=== PATIENT | male | born 1945 | race Caucasian/White ===

== ENCOUNTER 2017-05-27 17:28 | Observation (INO) | payer OTHER ==
[~2017-05-27] VITALS: Ht 172.7 cm; Wt 56.7 kg
[~2017-05-27 17:28] MED LIST: AZIT250T8 PO; CEFT1INJ33 IVP; GABA300C10; HYDR-4683 PO; OMEP20TA51; ROPI1TAB2; TRAZ100T2
[2017-05-27] MEDS ORDERED: SODIUM CHLORIDE 0.9% 1,000 ML IVB ONE (18:00)
[2017-05-27 19:20] LABS: Basophils # (auto) 0 uL; Hemoglobin 14.9 g/dL (13.5-17.5); Lymphocytes # (auto) 2.3 uL; Monocytes # (auto) 0.5 uL; Neutrophils # (auto) 3.1 uL
[2017-05-27 19:22] LABS: Basophils % (auto) 0.5 % (0.0-2.0); Eosinophils # (auto) 0.1 uL; Eosinophils % (auto) 1.1 % (0.0-7.0); Hematocrit 43.9 % (41.0-53.0); Lymphocytes % (auto) 38.5 % (10.0-50.0); Mean Corpuscular Hemoglobin 34.3 pg (28.0-32.0); Mean Corpuscular Hgb Conc. 33.9 g/dL (32.0-36.0); Mean Corpuscular Volume 101.1 fL (80.0-100.0); Monocytes % (auto) 7.6 % (0.0-12.0); Neutrophils % (auto) 52.3 % (37.0-80.0); Nucleated Red Blood Cells % 0.5 %; Platelet Count (auto) 164 10^3/uL (140-450); Red Blood Cells 4.34 10^6/uL (4.5-5.90); Red Cell Distribution Width 14.5 % (11.8-14.3)
[2017-05-27 19:32] LABS: INR 1.08 (0.9-1.15); Partial Thromboplastin Time 33.8 sec (22.64-33.71); Prothrombin Time 11.8 sec (9.37-12.3)
[2017-05-27 19:38] LABS: Acetaminophen < 2.0 ug/mL (10-30); Salicylate < 1.7 mg/dL (2.8-20.0)
[2017-05-27 19:40] LABS: Albumin 2.8 g/dL (3.4-5.0); BUN/Creatinine Ratio 7.4; Bilirubin, Total 0.6 mg/dL (0.2-1.0); Calcium 7.7 mg/dL (8.5-10.1); Magnesium 2.3 mg/dL (1.6-2.6); Potassium 3.2 mmol/L (3.5-5.1); Total Protein 6.7 g/dL (6.4-8.2)
[2017-05-27] MEDS ORDERED: SODIUM CHLORIDE 0.9% 1,000 ML IV ONE ×2 (20:15→22:30)
[2017-05-27] MEDS ORDERED: POTASSIUM CHL 20 Meq TABLET PO ONE (21:30)
[2017-05-27] MEDS ORDERED: FOLIC ACID 1 MG TAB ONE (22:20)
[2017-05-27] MEDS ORDERED: THIAMINE HCL 100 MG/ML 2ML VIAL ONE (22:20)
[2017-05-27] MEDS ORDERED: MVI in SODIUM CHLORIDE 0.9% 1,010 ML ONE (22:20)
[2017-05-27] MEDS ORDERED: MAGNESIUM SULFATE 1GM/100ML 0 ML IV ONE (22:24)
[2017-05-27 22:25] LABS: Urine WBC None Seen /hpf (0 - 3)
[2017-05-27] MEDS ORDERED: THIAMINE INJ 100 MG, MULTIPLE VITAMIN 10 ML, FOLIC ACID 1 MG, MAGNESIUM SULF SDV 50% 8 ... IV SCH ×5 (22:30)
[2017-05-27] MEDS ORDERED: THIAMINE HCL 100 MG/ML 2ML VIAL IV ONE (22:30)
[2017-05-27] MEDS ORDERED: FOLIC ACID 1 MG TAB PO ONE (22:30)
[2017-05-27 22:46] LABS: Urine Bacteria FEW /hpf (None Seen); Urine Blood Negative /uL (Negative); Urine Specific Gravity 1.004 (1.001-1.035)
[2017-05-27 22:51] LABS: Amphetamine Screen, Urine NEGATIVE (NEGATIVE); Barbiturate Scree,Urine NEGATIVE (NEGATIVE); Benzodiazephine Screen, Urine NEGATIVE (NEGATIVE); Cannabinoid Screen, Urine NEGATIVE (NEGATIVE); Cocaine Screen, Urine NEGATIVE (NEGATIVE); Opiate Scree,Urine NEGATIVE (NEGATIVE); Phencyclidine Screen, Urine NEGATIVE (NEGATIVE)
[2017-05-28 09:37] VITALS: BP 115/70
[2017-05-28] MEDS ORDERED: THIAMINE INJ 100 MG, MULTIPLE VITAMIN 10 ML, FOLIC ACID 1 MG, MAGNESIUM SULF SDV 50% 8 ... IV SCH ×5 (12:00)
== END 2017-05-28 14:31 | disposition home or self-care (01) | DRG 918 ==
LOC: EDBD 17:28 → ER 17:31 → OVERFLOW 18:01 → ER 05-28 14:31
PROVIDERS: ADMIT Family Medicine; ATTEND Family Medicine
DX: T43.212A Poisoning by selective serotonin and norepinephrine reuptake inhibitors, intentional self-harm, initial encounter (principal); G62.9 Polyneuropathy, unspecified; F10.20 Alcohol dependence, uncomplicated; F17.210 Nicotine dependence, cigarettes, uncomplicated; G47.00 Insomnia, unspecified; F32.9 Major depressive disorder, single episode, unspecified; F41.9 Anxiety disorder, unspecified; Z91.5 Personal history of self-harm; Y92.89 Other specified places as the place of occurrence of the external cause
CPT/HCPCS: 36415; 71045; 80053; 80307; 80320; 80329; 81001; 82962; 83735; 85025; 85610; 85730; 93005; 96361; 96374; 99285; G0378; J3411; J3475; J7030

== ENCOUNTER 2017-07-16 20:38 | Inpatient (IN) | payer OTHER ==
[~2017-07-16] VITALS: Ht 172.7 cm; Wt 57.4 kg
[2017-07-16 22:21] LABS: Basophils # (auto) 0 uL; Basophils % (auto) 0.6 % (0.0-2.0); Eosinophils # (auto) 0.1 uL; Hemoglobin 14.6 g/dL (13.5-17.5); Lymphocytes # (auto) 2.4 uL; Neutrophils # (auto) 1.8 uL; White Blood Cell 4.9 10^3/uL (4.4-10.8)
[2017-07-16 22:24] LABS: Eosinophils % (auto) 1.9 % (0.0-7.0); Hematocrit 42.9 % (41.0-53.0); Mean Corpuscular Hemoglobin 34.8 pg (28.0-32.0); Mean Corpuscular Hgb Conc. 34.1 g/dL (32.0-36.0); Mean Corpuscular Volume 101.9 fL (80.0-100.0); Monocytes # (auto) 0.6 uL; Monocytes % (auto) 12.1 % (0.0-12.0); Neutrophils % (auto) 36.4 % (37.0-80.0); Nucleated Red Blood Cells % 0.3 %; Red Blood Cells 4.21 10^6/uL (4.5-5.90); Red Cell Distribution Width 14.3 % (11.8-14.3)
[2017-07-16 22:35] LABS: Alanine Aminotransferase 93 U/L (16-61); Albumin 3.4 g/dL (3.4-5.0); Amylase 75 U/L (25-115); Anion Gap 5 (5-15); Aspartate Aminotransferase 257 U/L (15-37); Blood Urea Nitrogen 9 mg/dL (7-18); Calcium 8.6 mg/dL (8.5-10.1); Carbon Dioxide 29 mmol/L (21-32); Chloride 109 mmol/L (98-107); GFR African American 171 mL/min; GFR Non-African American 142 mL/min; Glucose 90 mg/dL (74-106); Lipase 230 U/L (73-393); Potassium 3.3 mmol/L (3.5-5.1); Sodium 143 mmol/L (136-145)
[2017-07-16 22:40] LABS: Alkaline Phosphatase 99 U/L (45-117); Bilirubin, Total 0.6 mg/dL (0.2-1.0); Platelet Count (auto) 67 10^3/uL (140-450)
[2017-07-16 23:34] LABS: INR 0.97 (0.9-1.15); Partial Thromboplastin Time 29.3 sec (22.64-33.71); Prothrombin Time 10.6 sec (9.37-12.3)
[2017-07-17 06:34] LABS: Urine Bacteria NONE SEEN /hpf (None Seen); Urine Blood Negative /uL (Negative); Urine Specific Gravity 1.007 (1.001-1.035); Urine WBC <1 /hpf (0 - 3)
[2017-07-17] MEDS ORDERED: GABAPENTIN 300 MG CAP PO ONE (09:30)
[2017-07-17] MEDS ORDERED: ALUM & MAG HYDROX-SIMETH LIQ(MAALOX) 30 ML PO PRN (09:45)
[2017-07-17] MEDS ORDERED: HYDROcodone-ACET 5/325MG TAB PO PRN (09:45)
[2017-07-17] MEDS ORDERED: MORPHINE SULFATE 4 MG/ML SYR/VIAL IV PRN ×2 (09:45)
[2017-07-17] MEDS ORDERED: PHYTONADIONE (VIT K)10 MG/ML 1ML VIAL SUBCUT ONE (09:45)
[2017-07-17] MEDS ORDERED: TEMAZEPAM 15 MG CAP PO PRN (09:45)
[2017-07-17] MEDS ORDERED: ONDANSETRON HCL 4 MG/2 ML VIAL IV PRN (09:45)
[2017-07-17] MEDS ORDERED: NITROGLYCERIN 0.4 MG SL TAB SL PRN (09:45)
[2017-07-17] MEDS ORDERED: ACETAMINOPHEN 325 MG TAB PO PRN (09:45)
[2017-07-17] MEDS: chlordiazePOXIDE HCL 25 MG CAP PO PRN ×3 (09:50→16:50)
[2017-07-17] MEDS: SODIUM CHLORIDE 0.9% 1,000 ML IV SCH (09:55)
[2017-07-17] MEDS ORDERED: FAMOTIDINE 20 MG TAB PO SCH (10:00)
[2017-07-17] MEDS ORDERED: PANTOPRAZOLE 40 MG/10 ML VIAL IV SCH (10:00)
[2017-07-17] MEDS: MULTIPLE VITAMIN TAB PO SCH (10:09)
[2017-07-17] MEDS: METOPROLOL TARTRATE 25 MG TAB PO SCH ×2 (10:10→21:59)
[2017-07-17 12:05] VITALS: BP 129/91
[2017-07-17] MEDS ORDERED: LORazepam 2MG/ML-1ML VIAL IV PRN (13:00)
[2017-07-17] MEDS ORDERED: PROMETHAZINE HCL 25 MG/ML 1ML IV PRN (13:00)
[2017-07-17 13:09] VITALS: BP 129/91
[2017-07-17] MEDS ORDERED: GOLYTELY 4L KIT PO ONE (15:00)
[2017-07-17] MEDS: GABAPENTIN 300 MG CAP PO SCH ×2 (15:01→22:00)
[2017-07-17 16:27] VITALS: BP 143/85
[2017-07-17 22:00] VITALS: BP 149/85
[2017-07-17] MEDS: traZODone HCL 50 MG TAB PO SCH (22:00)
[2017-07-17] MEDS: PANTOPRAZOLE 40 MG/10 ML VIAL IV SCH (22:01)
[2017-07-18] MEDS: SODIUM CHLORIDE 0.9% 1,000 ML IV SCH (03:08)
[2017-07-18 05:48] LABS: Basophils # (auto) 0 uL; Eosinophils # (auto) 0 uL; Lymphocytes # (auto) 1.8 uL; White Blood Cell 4.8 10^3/uL (4.4-10.8)
[2017-07-18 05:52] LABS: Basophils % (auto) 0.5 % (0.0-2.0); Eosinophils % (auto) 0.6 % (0.0-7.0); Hemoglobin 13.2 g/dL (13.5-17.5); Lymphocytes % (auto) 36.6 % (10.0-50.0); Mean Corpuscular Hemoglobin 35.1 pg (28.0-32.0); Mean Corpuscular Hgb Conc. 34.7 g/dL (32.0-36.0); Mean Corpuscular Volume 101.1 fL (80.0-100.0); Monocytes # (auto) 0.6 uL; Monocytes % (auto) 12.6 % (0.0-12.0); Neutrophils # (auto) 2.4 uL; Neutrophils % (auto) 49.7 % (37.0-80.0); Nucleated Red Blood Cells % 0.1 %; Platelet Count (auto) 60 10^3/uL (140-450); Red Blood Cells 3.76 10^6/uL (4.5-5.90); Red Cell Distribution Width 13.8 % (11.8-14.3)
[2017-07-18] MEDS: GABAPENTIN 300 MG CAP PO SCH ×3 (05:52→21:55)
[2017-07-18 05:53] VITALS: BP 115/66
[2017-07-18] MEDS ORDERED: GOLYTELY 4L KIT PO ONE (06:00)
[2017-07-18 06:11] LABS: Albumin 3.1 g/dL (3.4-5.0); BUN/Creatinine Ratio 9.4; Bilirubin, Total 1.4 mg/dL (0.2-1.0); Calcium 7.4 mg/dL (8.5-10.1); Total Protein 6.1 g/dL (6.4-8.2)
[2017-07-18 06:17] LABS: Potassium 2.8 mmol/L (3.5-5.1)
[2017-07-18 08:48] VITALS: BP 127/66
[2017-07-18] MEDS: METOPROLOL TARTRATE 25 MG TAB PO SCH ×2 (09:00→21:55)
[2017-07-18] MEDS: PANTOPRAZOLE 40 MG/10 ML VIAL IV SCH (09:00)
[2017-07-18] MEDS: chlordiazePOXIDE HCL 25 MG CAP PO PRN (09:00)
[2017-07-18] MEDS: MULTIPLE VITAMIN TAB PO SCH (10:00)
[2017-07-18] MEDS ORDERED: POTASSIUM CHLORIDE 40 MEQ, LIDOCAINE 1% (LOCAL ANESTH.) 4 ML in SODIUM CHL 0.9% 250 ML IV ONE (11:00)
[2017-07-18] MEDS ORDERED: LIDOCAINE VISCOUS 2% 15ML UD ONE (11:11)
[2017-07-18] MEDS ORDERED: diphenhdrAMINE HCL 50 MG/1 ML VL ONE (11:12)
[2017-07-18] MEDS: SOD CHL 0.9%/ KCL 20MEQ 1,000 ML IV SCH (12:11)
[2017-07-18 13:00] VITALS: BP 106/68
[2017-07-18] MEDS: fentaNYL CITRATE 100 MCG/2 ML VL ONE ×3 (14:43→14:52)
[2017-07-18] MEDS: MIDAZOLAM HCL 5 MG/ML-1ML VIAL ONE ×3 (14:43→14:52)
[2017-07-18] MEDS ORDERED: fentaNYL CITRATE 100 MCG/2 ML VL ONE (14:56)
[2017-07-18] MEDS ORDERED: MIDAZOLAM HCL 5 MG/ML-1ML VIAL ONE (14:56)
[2017-07-18 16:28] VITALS: BP 128/68
[2017-07-18] MEDS: POTASSIUM CHL 20 Meq TABLET PO SCH ×4 (16:52→21:54)
[2017-07-18] MEDS ORDERED: PANT40T PO (17:04)
[2017-07-18 17:38] VITALS: BP 128/68
[2017-07-18 18:45] LABS: Magnesium 1.5 mg/dL (1.6-2.6)
[2017-07-18 18:49] LABS: Potassium 2.8 mmol/L (3.5-5.1)
[2017-07-18] MEDS ORDERED: POTASSIUM CHLORIDE 20 MEQ, LIDOCAINE 1% (LOCAL ANESTH.) 2 ML in SODIUM CHL 0.9% 100 ML IV ONE (19:30)
[2017-07-18] MEDS: MAGNESIUM SULFATE 1GM/100ML 100 ML IV SCH ×2 (21:53→23:08)
[2017-07-18] MEDS: traZODone HCL 50 MG TAB PO SCH (21:54)
[2017-07-18] MEDS: PANTOPRAZOLE 40 MG TAB PO SCH (21:55)
[2017-07-18 22:00] VITALS: BP 116/67
[2017-07-19] MEDS ORDERED: MAGNESIUM SULFATE 1GM/100ML 100 ML IV ONE (00:17)
[2017-07-19] MEDS: MAGNESIUM SULFATE 1GM/100ML 100 ML IV SCH (00:25)
[2017-07-19] MEDS: SOD CHL 0.9%/ KCL 20MEQ 1,000 ML IV SCH (03:50)
[2017-07-19 05:00] VITALS: BP 134/74
[2017-07-19] MEDS: GABAPENTIN 300 MG CAP PO SCH (05:23)
[2017-07-19 06:53] LABS: Potassium 4.5 mmol/L (3.5-5.1)
[2017-07-19 06:56] LABS: Magnesium 2.4 mg/dL (1.6-2.6)
[2017-07-19 09:00] VITALS: BP 105/66
[2017-07-19] MEDS: MULTIPLE VITAMIN TAB PO SCH (10:00)
[2017-07-19] MEDS: METOPROLOL TARTRATE 25 MG TAB PO SCH (10:00)
[2017-07-19] MEDS: PANTOPRAZOLE 40 MG TAB PO SCH (10:00)
[2017-07-19 12:00] VITALS: BP 121/69
== END 2017-07-19 11:45 | disposition home or self-care (01) | DRG 394 ==
LOC: ER 20:38 → TELE 20:39 → TELE-CENTR 07-17 11:12
PROVIDERS: ADMIT Internal Medicine; ATTEND Hospitalist
PROC: 0DJ08ZZ Inspection of Upper Intestinal Tract, Via Natural or Artificial Opening Endoscopic (ICD-10-PCS; principal; 2017-07-18 14:40)
PROC: 0DBL8ZX Excision of Transverse Colon, Via Natural or Artificial Opening Endoscopic, Diagnostic (ICD-10-PCS; 2017-07-18 14:40)
DX: K64.8 Other hemorrhoids (principal); F10.231 Alcohol dependence with withdrawal delirium; D69.6 Thrombocytopenia, unspecified; K62.5 Hemorrhage of anus and rectum; K76.0 Fatty (change of) liver, not elsewhere classified; D12.2 Benign neoplasm of ascending colon; E87.6 Hypokalemia; G89.4 Chronic pain syndrome; K20.9 Esophagitis, unspecified; K29.70 Gastritis, unspecified, without bleeding; K29.80 Duodenitis without bleeding; K52.9 Noninfective gastroenteritis and colitis, unspecified; F32.9 Major depressive disorder, single episode, unspecified; F41.9 Anxiety disorder, unspecified
CPT/HCPCS: 36415; 43235; 45380; 71045; 74176; 80053; 81001; 82150; 83690; 83735; 84132; 84484; 85025; 85610; 85730; 86677; 86850; 86900; 86901; 93005; 93306; 96361; 96374; C9113; J2001; J2250; J2405; J3430

== ENCOUNTER 2018-08-09 20:16 | Emergency (ER) | payer OTHER ==
[~2018-08-09] VITALS: Ht 172.7 cm; Wt 53.1 kg
[~2018-08-09 20:16] MED LIST changes: -AZIT250T8 PO; -CEFT1INJ33 IVP; -OMEP20TA51; +PANT40T PO
[2018-08-10] MEDS ORDERED: KETOROLAC TROMETH 30 MG/ML 1ML VIAL IV ONE (02:45)
[2018-08-10] MEDS ORDERED: fentaNYL CITRATE 100 MCG/2 ML VL IV ONE (02:45)
[2018-08-10 03:07] LABS: White Blood Cell 7.9 10^3/uL (4.4-10.8)
[2018-08-10 03:15] LABS: Chloride 102 mmol/L (98-107); Potassium 3.8 mmol/L (3.5-5.1); Sodium 137 mmol/L (136-145)
[2018-08-10 03:23] LABS: Alanine Aminotransferase 13 U/L (16-61); Albumin 3.6 g/dL (3.4-5.0); Alkaline Phosphatase 93 U/L (45-117); Anion Gap 7 (5-15); Aspartate Aminotransferase 15 U/L (15-37); BUN/Creatinine Ratio 12.7; Bilirubin, Total 0.6 mg/dL (0.2-1.0); Blood Alcohol < 3.0 mg/dL (0-5); Blood Urea Nitrogen 9 mg/dL (7-18); Calcium 9.3 mg/dL (8.5-10.1); Carbon Dioxide 28 mmol/L (21-32); GFR African American 141 mL/min; GFR Non-African American 116 mL/min; Glucose 91 mg/dL (74-106); Magnesium 2.2 mg/dL (1.6-2.6); Total Protein 7.7 g/dL (6.4-8.2)
[2018-08-10 03:27] LABS: Basophils # (auto) 0 uL; Basophils % (auto) 0.4 % (0.0-2.0); Eosinophils # (auto) 0.1 uL; Eosinophils % (auto) 1.6 % (0.0-7.0); Hematocrit 39.8 % (41.0-53.0); Hemoglobin 13.5 g/dL (13.5-17.5); Lymphocytes # (auto) 2.2 uL; Lymphocytes % (auto) 27.7 % (10.0-50.0); Mean Corpuscular Hemoglobin 30.7 pg (28.0-32.0); Mean Corpuscular Hgb Conc. 33.8 g/dL (32.0-36.0); Mean Corpuscular Volume 90.8 fL (80.0-100.0); Monocytes # (auto) 0.7 uL; Monocytes % (auto) 9.4 % (0.0-12.0); Neutrophils # (auto) 4.8 uL; Neutrophils % (auto) 60.9 % (37.0-80.0); Nucleated Red Blood Cells % 0.1 %; Platelet Count (auto) 247 10^3/uL (140-450); Red Blood Cells 4.38 10^6/uL (4.5-5.90); Red Cell Distribution Width 13.3 % (11.8-14.3)
[2018-08-10 03:35] LABS: INR 1.03 (0.9-1.15); Partial Thromboplastin Time 37.9 sec (23.78-33.04)
[2018-08-10 04:32] VITALS: BP 116/75
== END 2018-08-10 04:46 | disposition short-term general hospital (02) ==
LOC: ER 20:21
DX: S32.009A Unspecified fracture of unspecified lumbar vertebra, initial encounter for closed fracture (principal); R79.1 Abnormal coagulation profile; M19.90 Unspecified osteoarthritis, unspecified site; X50.9XXA Other and unspecified overexertion or strenuous movements or postures, initial encounter; Y93.89 Activity, other specified; Y92.89 Other specified places as the place of occurrence of the external cause; Y99.8 Other external cause status
CPT/HCPCS: 36415; 71045; 72131; 80053; 80320; 83735; 84484; 85025; 85379; 85610; 85730; 96374; 96375; 99285; J1885; J3010

== ENCOUNTER 2019-03-30 19:08 | Emergency (ER) | payer OTHER ==
[~2019-03-30] VITALS: Ht 170.2 cm; Wt 53.5 kg
[~2019-03-30 19:08] MED LIST changes: -HYDR-4683 PO; +HYDR-4833 PO
[2019-03-30] MEDS ORDERED: HYDROcodone-ACET 5/325MG TAB PO ONE (20:00)
[2019-03-30] MEDS ORDERED: NEOMYCIN-BACITRACIN-POLYM UNITDOSE PKG TOP OINT TOP ONE (20:45)
[2019-03-30] MEDS ORDERED: NEOMYCIN-BACITRACIN-POLYM UNITDOSE PKG TOP OINT TOP PRN (21:00)
[2019-03-30 22:06] LABS: Basophils # (auto) 0 uL; Basophils % (auto) 0.2 % (0.0-2.0); Eosinophils # (auto) 0.1 uL; Eosinophils % (auto) 0.5 % (0.0-7.0); Hematocrit 46.2 % (41.0-53.0); Hemoglobin 15.7 g/dL (13.5-17.5); Lymphocytes # (auto) 1.8 uL; Lymphocytes % (auto) 16.7 % (10.0-50.0); Mean Corpuscular Hemoglobin 32.4 pg (28.0-32.0); Mean Corpuscular Volume 95.1 fL (80.0-100.0); Monocytes # (auto) 0.8 uL; Monocytes % (auto) 7.3 % (0.0-12.0); Neutrophils # (auto) 8.2 uL; Neutrophils % (auto) 75.3 % (37.0-80.0); Nucleated Red Blood Cells % 0.1 %; Platelet Count (auto) 182 10^3/uL (140-450); Red Blood Cells 4.86 10^6/uL (4.5-5.90); Red Cell Distribution Width 15.2 % (11.8-14.3); White Blood Cell 10.9 10^3/uL (4.4-10.8)
[2019-03-30 22:16] LABS: Alanine Aminotransferase 23 U/L (16-61); Albumin 3.7 g/dL (3.4-5.0); Anion Gap 9 (5-15); Aspartate Aminotransferase 34 U/L (15-37); BUN/Creatinine Ratio 11.9; Blood Urea Nitrogen 8 mg/dL (7-18); Calcium 8.8 mg/dL (8.5-10.1); Carbon Dioxide 22 mmol/L (21-32); Chloride 112 mmol/L (98-107); GFR African American 150 mL/min; GFR Non-African American 124 mL/min; Glucose 94 mg/dL (74-106); Potassium 3.8 mmol/L (3.5-5.1); Sodium 143 mmol/L (136-145)
[2019-03-30 22:18] LABS: INR 1.04 (0.9-1.15); Partial Thromboplastin Time 30.6 sec (23.64-32.05)
[2019-03-30 22:21] LABS: Alkaline Phosphatase 105 U/L (45-117); Bilirubin, Total 0.5 mg/dL (0.2-1.0)
[2019-03-30 22:31] VITALS: BP 127/85
== END 2019-03-30 22:20 | disposition home or self-care (01) ==
LOC: EDBD 19:08 → ER 19:09
DX: S16.1XXA Strain of muscle, fascia and tendon at neck level, initial encounter (principal); S20.212A Contusion of left front wall of thorax, initial encounter; M19.90 Unspecified osteoarthritis, unspecified site; V43.52XA Car driver injured in collision with other type car in traffic accident, initial encounter; Y93.I9 Activity, other involving external motion; Y92.410 Unspecified street and highway as the place of occurrence of the external cause; Y99.8 Other external cause status
CPT/HCPCS: 36415; 70450; 71045; 72125; 80053; 84484; 85025; 85610; 85730; 93005

== ENCOUNTER 2019-09-01 08:40 | Inpatient (IN) | payer OTHER ==
[~2019-09-01] VITALS: Ht 167.6 cm; Wt 53.3 kg
[~2019-09-01 08:40] MED LIST changes: -TRAZ100T2; +TRAZ100T3
[2019-09-01 09:35] LABS: Basophils # (auto) 0 10 ^3/uL (0-0.2); Basophils % (auto) 0.4 % (0.0-2.0); Eosinophils # (auto) 0.1 10 ^3/uL (0-0.8); Eosinophils % (auto) 1.5 % (0.0-7.0); Hematocrit 50.8 % (41.0-53.0); Hemoglobin 16.8 g/dL (13.5-17.5); Lymphocytes % (auto) 44.1 % (10.0-50.0); Mean Corpuscular Hemoglobin 32.3 pg (28.0-32.0); Mean Corpuscular Hgb Conc. 33.1 g/dL (32.0-36.0); Mean Corpuscular Volume 97.7 fL (80.0-100.0); Monocytes # (auto) 0.6 10 ^3/uL (0-1.3); Monocytes % (auto) 9.6 % (0.0-12.0); Neutrophils % (auto) 44.4 % (37.0-80.0); Nucleated Red Blood Cells % 0.2 %; Platelet Count (auto) 206 10^3/uL (140-450); Red Cell Distribution Width 14.8 % (11.8-14.3); White Blood Cell 6.8 10^3/uL (4.4-10.8)
[2019-09-01 09:51] LABS: Albumin 3.5 g/dL (3.4-5.0); Calcium 8.7 mg/dL (8.5-10.1); Potassium 3.4 mmol/L (3.5-5.1)
[2019-09-01 09:56] LABS: Bilirubin, Total 0.5 mg/dL (0.2-1.0); Total Protein 7.8 g/dL (6.4-8.2)
[2019-09-01 10:16] LABS: INR 1.04 (0.9-1.15); Partial Thromboplastin Time 35.3 sec (23.64-32.05)
[2019-09-01] MEDS ORDERED: IOHEXOL 350 MG/ML 100ML IJ ONE (11:09)
[2019-09-01] MEDS ORDERED: POTASSIUM EFFERVESENT TAB 25 MEQ PO ONE (12:00)
[2019-09-01] MEDS ORDERED: cefTRIAXone 1GM/50ML D5W 50 ML IV ONE (12:15)
[2019-09-01] MEDS ORDERED: CLINDAMYCIN 600MG IV 50 ML IV ONE (12:15)
[2019-09-01] MEDS ORDERED: NITROGLYCERIN 0.4 MG SL TAB SL PRN (12:45)
[2019-09-01] MEDS ORDERED: ONDANSETRON HCL 4 MG/2 ML VIAL IV PRN (12:45)
[2019-09-01] MEDS ORDERED: DOCUSATE SOD 100 MG CAP PO PRN (12:45)
[2019-09-01] MEDS ORDERED: MORPHINE SULF INJ 2 MG/ML SYRINGE 1ML IV PRN (12:45)
[2019-09-01] MEDS ORDERED: CYCLOBENZAPRINE HCL 10 MG TAB PO PRN (12:45)
[2019-09-01] MEDS ORDERED: KETOROLAC TROMETH 30 MG/ML 1ML VIAL IV ONE (12:45)
[2019-09-01] MEDS ORDERED: ACETAMINOPHEN 500 MG TAB PO PRN (12:45)
[2019-09-01] MEDS ORDERED: ENOXAPARIN SOD 40 MG/0.4 ML SYRINGE SC ONE (13:00)
[2019-09-01] MEDS ORDERED: PANTOPRAZOLE 40 MG TAB PO ONE (13:00)
[2019-09-01 13:08] LABS: Cholesterol 175 mg/dL (< 200); HDL Cholesterol 97 mg/dL (40-59); LDL Cholesterol 66 mg/dL (< 100); Triglycerides 72 mg/dL (< 150)
[2019-09-01] MEDS ORDERED: ALBUTEROL SULF 2.5 MG/0.5ML(0.5%) NEB SOLN NEB SCH (14:00)
[2019-09-01] MEDS: FOLIC ACID 1 MG, MULTIPLE VITAMIN 10 ML, MAGNESIUM SULF SDV 50% 8 MEQ, THIAMINE INJ 100... INJ SCH ×5 (14:05)
[2019-09-01] MEDS: CLINDAMYCIN 300MG IV 50 ML IV SCH ×2 (14:09→21:47)
[2019-09-01 16:30] VITALS: BP 130/88
[2019-09-01] MEDS: HYDROcodone-ACET 5/325MG TAB PO PRN ×2 (16:38→23:37)
[2019-09-01] MEDS: IPRATROPIUM BROM 0.5 MG/2.5ML INH SOL NEB SCH (19:03)
[2019-09-01] MEDS: ALBUTEROL SULF 2.5 MG/0.5ML(0.5%) NEB SOLN NEB SCH (19:03)
[2019-09-01] MEDS: ACETYLCYSTEINE 10 %(100MG/ML) SOL 4ML NEB SCH (19:03)
[2019-09-01 19:34] VITALS: BP 130/88
[2019-09-01 22:00] VITALS: BP 134/74
[2019-09-02 05:00] VITALS: BP 144/71
[2019-09-02] MEDS: CLINDAMYCIN 300MG IV 50 ML IV SCH ×3 (05:50→21:46)
[2019-09-02 06:02] LABS: Basophils # (auto) 0 10 ^3/uL (0-0.2); Basophils % (auto) 0.6 % (0.0-2.0); Eosinophils # (auto) 0.1 10 ^3/uL (0-0.8); Eosinophils % (auto) 0.9 % (0.0-7.0); Hematocrit 46.8 % (41.0-53.0); Hemoglobin 16.1 g/dL (13.5-17.5); Lymphocytes % (auto) 33.3 % (10.0-50.0); Mean Corpuscular Hemoglobin 33.8 pg (28.0-32.0); Mean Corpuscular Hgb Conc. 34.3 g/dL (32.0-36.0); Mean Corpuscular Volume 98.4 fL (80.0-100.0); Monocytes # (auto) 0.5 10 ^3/uL (0-1.3); Monocytes % (auto) 8.9 % (0.0-12.0); Neutrophils # (auto) 3.3 10 ^3/uL (1.6-8.6); Neutrophils % (auto) 56.3 % (37.0-80.0); Platelet Count (auto) 166 10^3/uL (140-450); Red Blood Cells 4.76 10^6/uL (4.5-5.90); Red Cell Distribution Width 14.7 % (11.8-14.3); White Blood Cell 5.9 10^3/uL (4.4-10.8)
[2019-09-02 06:18] LABS: Potassium 3.6 mmol/L (3.5-5.1)
[2019-09-02 06:27] LABS: Albumin 3.3 g/dL (3.4-5.0); Bilirubin, Total 1.4 mg/dL (0.2-1.0); Calcium 8.4 mg/dL (8.5-10.1); Total Protein 7.1 g/dL (6.4-8.2)
[2019-09-02] MEDS: HYDROcodone-ACET 5/325MG TAB PO PRN ×2 (06:27→18:40)
[2019-09-02] MEDS: IPRATROPIUM BROM 0.5 MG/2.5ML INH SOL NEB SCH ×3 (06:39→18:58)
[2019-09-02] MEDS: ACETYLCYSTEINE 10 %(100MG/ML) SOL 4ML NEB SCH ×3 (06:39→18:58)
[2019-09-02] MEDS: ALBUTEROL SULF 2.5 MG/0.5ML(0.5%) NEB SOLN NEB SCH ×3 (06:39→18:58)
[2019-09-02 09:00] VITALS: BP 135/71
[2019-09-02] MEDS: cefTRIAXone 1GM/50ML D5W 50 ML IV SCH (09:00)
[2019-09-02] MEDS: ENOXAPARIN SOD 40 MG/0.4 ML SYRINGE SC SCH (09:41)
[2019-09-02] MEDS: PANTOPRAZOLE 40 MG TAB PO SCH (10:00)
[2019-09-02] MEDS ORDERED: FAMOTIDINE 20 MG TAB PO SCH (10:00)
[2019-09-02] MEDS: FOLIC ACID 1 MG, MULTIPLE VITAMIN 10 ML, MAGNESIUM SULF SDV 50% 8 MEQ, THIAMINE INJ 100... INJ SCH ×5 (12:00)
[2019-09-02 13:00] VITALS: BP 148/75
[2019-09-02] MEDS: MORPHINE SULF INJ 2 MG/ML SYRINGE 1ML IV PRN ×2 (15:42→21:46)
[2019-09-02 17:00] VITALS: BP 128/73
[2019-09-02 22:00] VITALS: BP 157/79
[2019-09-02] MEDS ORDERED: TEMAZEPAM 15 MG CAP PO PRN (22:45)
[2019-09-03 05:00] VITALS: BP 129/67
[2019-09-03] MEDS: CLINDAMYCIN 300MG IV 50 ML IV SCH (06:29)
[2019-09-03] MEDS: IPRATROPIUM BROM 0.5 MG/2.5ML INH SOL NEB SCH ×3 (08:06→11:35)
[2019-09-03] MEDS: ALBUTEROL SULF 2.5 MG/0.5ML(0.5%) NEB SOLN NEB SCH ×3 (08:06→11:35)
[2019-09-03 08:10] VITALS: BP 149/83
[2019-09-03] MEDS: MORPHINE SULF INJ 2 MG/ML SYRINGE 1ML IV PRN (08:27)
[2019-09-03 09:00] VITALS: BP 149/83
[2019-09-03] MEDS: cefTRIAXone 1GM/50ML D5W 50 ML IV SCH (09:00)
[2019-09-03] MEDS: PANTOPRAZOLE 40 MG TAB PO SCH (10:30)
[2019-09-03] MEDS: ENOXAPARIN SOD 40 MG/0.4 ML SYRINGE SC SCH (10:30)
[2019-09-03] MEDS ORDERED: FOLIC ACID 1 MG, MULTIPLE VITAMIN 10 ML, MAGNESIUM SULF SDV 50% 8 MEQ in D5W 5% 1,000 ML INJ SCH (12:00)
[2019-09-03 13:00] VITALS: BP 150/92
[2019-09-03 14:30] VITALS: BP 150/92
== END 2019-09-03 13:25 | disposition home or self-care (01) | DRG 603 ==
LOC: ER 08:40 → TELE 08:41 → TELE-EAST 15:54
PROVIDERS: ADMIT Nurse Practitioner Acute Care; ATTEND Internal Medicine
DX: L03.116 Cellulitis of left lower limb (principal); R64 Cachexia; Z68.1 Body mass index [BMI] 19.9 or less, adult; G25.81 Restless legs syndrome; K27.9 Peptic ulcer, site unspecified, unspecified as acute or chronic, without hemorrhage or perforation; E87.6 Hypokalemia; G89.4 Chronic pain syndrome; F17.210 Nicotine dependence, cigarettes, uncomplicated; K21.9 Gastro-esophageal reflux disease without esophagitis; M54.5 Low back pain; J44.9 Chronic obstructive pulmonary disease, unspecified; Z80.0 Family history of malignant neoplasm of digestive organs; Z87.11 Personal history of peptic ulcer disease; Z80.1 Family history of malignant neoplasm of trachea, bronchus and lung; R91.8 Other nonspecific abnormal finding of lung field
CPT/HCPCS: 36415; 71045; 71275; 80053; 80061; 83880; 84443; 85025; 85610; 85730; 87040; 93971; 94640; G0378; J0696; J1885; J2405; J3490

== ENCOUNTER → 2019-09-07 | Emergency (ER) | payer OTHER ==
[~2019-09-07] VITALS: Ht 167.6 cm; Wt 50.8 kg
[~2019-09-07] MED LIST changes: +SODIUM CHLORIDE 0.9% 1,000 ML IV ONE
[2019-09-07 09:33] LABS: Basophils # (auto) 0 10 ^3/uL (0-0.2); Basophils % (auto) 0.5 % (0.0-2.0); Eosinophils # (auto) 0.1 10 ^3/uL (0-0.8); Eosinophils % (auto) 1.9 % (0.0-7.0); Hematocrit 47.3 % (41.0-53.0); Hemoglobin 15.8 g/dL (13.5-17.5); Lymphocytes # (auto) 2.1 10 ^3/uL (0.4-5.4); Lymphocytes % (auto) 33.2 % (10.0-50.0); Mean Corpuscular Hemoglobin 32.6 pg (28.0-32.0); Mean Corpuscular Hgb Conc. 33.4 g/dL (32.0-36.0); Mean Corpuscular Volume 97.5 fL (80.0-100.0); Monocytes # (auto) 0.8 10 ^3/uL (0-1.3); Monocytes % (auto) 12.4 % (0.0-12.0); Neutrophils # (auto) 3.4 10 ^3/uL (1.6-8.6); Platelet Count (auto) 194 10^3/uL (140-450); Red Blood Cells 4.85 10^6/uL (4.5-5.90); Red Cell Distribution Width 14.6 % (11.8-14.3); White Blood Cell 6.5 10^3/uL (4.4-10.8)
[2019-09-07 09:52] LABS: Albumin 3.5 g/dL (3.4-5.0); Calcium 8.4 mg/dL (8.5-10.1); Magnesium 2.4 mg/dL (1.6-2.6); Potassium 3.9 mmol/L (3.5-5.1)
[2019-09-07 09:56] LABS: BUN/Creatinine Ratio 11.9; Bilirubin, Total 0.7 mg/dL (0.2-1.0); Total Protein 7.7 g/dL (6.4-8.2)
[2019-09-07 11:33] VITALS: BP 168/76
== END | disposition home or self-care (01) ==
LOC: ER 02:29
DX: I87.8 Other specified disorders of veins (principal); L03.116 Cellulitis of left lower limb; E03.9 Hypothyroidism, unspecified; J44.9 Chronic obstructive pulmonary disease, unspecified; K21.9 Gastro-esophageal reflux disease without esophagitis; F17.210 Nicotine dependence, cigarettes, uncomplicated; Z79.899 Other long term (current) drug therapy
CPT/HCPCS: 36415; 80053; 83735; 84443; 85025; 99285; J7030

== ENCOUNTER 2019-10-11 01:44 | Inpatient (IN) | payer OTHER ==
[~2019-10-11] VITALS: Ht 168.9 cm; Wt 55.8 kg
[~2019-10-11 01:44] MED LIST changes: -SODIUM CHLORIDE 0.9% 1,000 ML IV ONE
[2019-10-11 03:25] LABS: Basophils # (auto) 0 10 ^3/uL (0-0.2); Basophils % (auto) 0.6 % (0.0-2.0); Eosinophils # (auto) 0.2 10 ^3/uL (0-0.8); Eosinophils % (auto) 3.3 % (0.0-7.0); Hematocrit 47.4 % (41.0-53.0); Hemoglobin 16.3 g/dL (13.5-17.5); Lymphocytes # (auto) 2.7 10 ^3/uL (0.4-5.4); Lymphocytes % (auto) 48.5 % (10.0-50.0); Mean Corpuscular Hemoglobin 33.5 pg (28.0-32.0); Mean Corpuscular Hgb Conc. 34.4 g/dL (32.0-36.0); Mean Corpuscular Volume 97.2 fL (80.0-100.0); Monocytes # (auto) 0.6 10 ^3/uL (0-1.3); Monocytes % (auto) 10.6 % (0.0-12.0); Neutrophils # (auto) 2.1 10 ^3/uL (1.6-8.6); Nucleated Red Blood Cells % 0.2 %; Platelet Count (auto) 155 10^3/uL (140-450); Red Blood Cells 4.88 10^6/uL (4.5-5.90); Red Cell Distribution Width 15.3 % (11.8-14.3); White Blood Cell 5.6 10^3/uL (4.4-10.8)
[2019-10-11 03:38] LABS: Albumin 3.3 g/dL (3.4-5.0); Anion Gap 7 (5-15); Blood Urea Nitrogen 5 mg/dL (7-18); Calcium 8.8 mg/dL (8.5-10.1); Carbon Dioxide 29 mmol/L (21-32); Chloride 102 mmol/L (98-107); Glucose 75 mg/dL (74-106); Magnesium 2.3 mg/dL (1.6-2.6); Potassium 3.2 mmol/L (3.5-5.1); Sodium 138 mmol/L (136-145)
[2019-10-11 03:40] LABS: Alanine Aminotransferase 33 U/L (16-61); Aspartate Aminotransferase 58 U/L (15-37); BUN/Creatinine Ratio 7.9; GFR African American 161 mL/min; GFR Non-African American 133 mL/min
[2019-10-11 03:45] LABS: Alkaline Phosphatase 96 U/L (45-117); Bilirubin, Total 0.5 mg/dL (0.2-1.0); Total Protein 7.4 g/dL (6.4-8.2)
[2019-10-11] MEDS ORDERED: ASPirin 81 mg TAB PO ONE (03:45)
[2019-10-11 03:55] LABS: INR 1.06 (0.9-1.15); Partial Thromboplastin Time 34.4 sec (23.64-32.05)
[2019-10-11] MEDS ORDERED: traMADol HCL 50 MG TAB PO ONE ×2 (04:15→05:45)
[2019-10-11] MEDS ORDERED: ONDANSETRON HCL 4 MG/2 ML VIAL IV PRN (06:00)
[2019-10-11] MEDS ORDERED: IPRATROPIUM BROM 0.5 MG/2.5ML INH SOL NEB PRN (06:00)
[2019-10-11] MEDS ORDERED: ALBUTEROL SULF 2.5 MG/0.5ML(0.5%) NEB SOLN NEB PRN (06:00)
[2019-10-11] MEDS ORDERED: ACETAMINOPHEN 325 MG TAB PO PRN (06:00)
--- NOTE | 2019-10-11 06:50 | NUR ---
PRN MN NOT INDICATED AT THIS TIME. PT IS AWAKE, ALERT AND ORIENTED. PT ON RA, 93% O2 SATS. RR18 BPM. RESPIRATIONS ARE EQUAL AND NON LABORED. BS ARE CLEAR TO AUSCULTATION, SKIN IS WARM AND DRY TO THE TOUCH. PT DENIES SOB OR ANY OTHER RESPIRATORY DISTRESS. PT INSTRUCTED TO CALL IF MN TX IS INDICATED. PT VERBALIZED UNDERSTANDING. WILL CONTINUE TO MONITOR PT.
--- NOTE | 2019-10-11 08:30 | NUR ---
Telemetry admit from ER [facility] admitted to Telemetry unit after SBAR received. Patient oriented to Isidra Yap, primary RN, unit, room, bed, and unit policies regarding patient care and visiting hours. Patient now on continuous telemetry monitoring, tele box # and telemetry reading on arrival to unit is . Patient placed on bedside oxygen, weighed by bedscale and encouraged to call if they need something. All questions and concerns addressed, patient verbalized understanding. Note:
[2019-10-11 09:01] VITALS: BP 150/82
[2019-10-11] MEDS: PANTOPRAZOLE 40 MG/10 ML VIAL INJ IV SCH (09:48)
[2019-10-11] MEDS: ASPirin 81 mg TAB PO SCH (09:48)
[2019-10-11] MEDS: CLOPIDOGREL BISULFATE 75 MG TAB PO SCH (09:48)
[2019-10-11] MEDS: LISINOPRIL 10 MG TAB PO SCH (09:49)
[2019-10-11] MEDS: ENOXAPARIN SOD 60 MG/0.6 ML SYRINGE SC SCH ×2 (09:50→21:09)
[2019-10-11] MEDS ORDERED: DOCUSATE SOD 100 MG CAP PO SCH (10:00)
[2019-10-11] MEDS ORDERED: ENOXAPARIN SOD 60 MG/0.6 ML SYRINGE SC SCH (10:00)
[2019-10-11 11:34] VITALS: BP 150/82
[2019-10-11 12:31] VITALS: BP 146/80
[2019-10-11] MEDS ORDERED: POTASSIUM EFFERVESENT TAB 25 MEQ PO ONE (13:00)
[2019-10-11] MEDS ORDERED: LACTULOSE 20Gm/30ML SOLN PO ONE (13:00)
[2019-10-11] MEDS ORDERED: POLYETHYLENE GLYCOL 17 GM PWDR PO ONE (13:00)
[2019-10-11] MEDS ORDERED: LORazepam 2MG/ML-1ML VIAL IV ONE (13:00)
--- NOTE | 2019-10-11 13:27 | NUR ---
PAGED DR Newton WEEKS RE: PAIN MEDICATION ORDER. MESSAGE LEFT. WAITING FOR CALL BACK.
--- NOTE | 2019-10-11 14:02 | NUR ---
MESSAGE LEFT WITH MRI DEPT RE: MRI ORDER. MD WANT IT DONE TODAY, IF POSSIBLE.
[2019-10-11 14:25] LABS: Cholesterol 177 mg/dL (< 200)
--- NOTE | 2019-10-11 14:27 | NUR ---
MESSAGE LEFT FOR DR Newton WEEKS RE: NO MRI UNTIL SUNDAY
[2019-10-11 14:28] LABS: HDL Cholesterol 126 mg/dL (40-59); LDL Cholesterol 43 mg/dL (< 100); Triglycerides 57 mg/dL (< 150)
[2019-10-11] MEDS: DOCUSATE SOD 100 MG CAP PO SCH ×2 (14:33→21:09)
[2019-10-11] MEDS: HYDROcodone-ACET 5/325MG TAB PO PRN ×2 (14:33→20:35)
[2019-10-11] MEDS ORDERED: TRAM50TA2 PO (15:01)
[2019-10-11 16:24] VITALS: BP 152/88
[2019-10-11 18:56] VITALS: BP 148/76
--- NOTE | 2019-10-11 19:19 | NUR ---
Respiratory note: ASSESSMENT FOR PRN MED NEB TX. PT PRESENTING NO RESPIRATORY DISTRESS AT THIS TIME. HR 90, SPO2 93% ON ROOM AIR, RR 17, BS DIMINISHED. MED NEB TX NOT INDICATED AT THIS TIME. PT AWARE TO HAVE RT PAGED IF NEEDED, WILL CONTINUE TO MONITOR.
--- NOTE | 2019-10-11 20:00 | NUR ---
IV removal IV to right forearm DC'd due to leaking/redness with clean sterile technique, catheter fully intact. Pressure dressing applied to site. Patient tolerated well.
--- NOTE | 2019-10-11 20:10 | NUR ---
IV insertion IV access obtained, via clean sterile technique by inserting 22 gauge catheter at left forearm after 1 attempt. IV secured properly. No trauma to site. Patient tolerated well.
[2019-10-11] MEDS: ATORVASTATIN 20 MG TAB PO SCH (21:09)
[2019-10-11 22:00] VITALS: BP 149/92
--- NOTE | 2019-10-11 22:16 | NUR ---
PAGED MD PATIENT APPEARS SHAKING AND STATES HE FEELS NERVOUS. PATIENT ASKED ABOUT ETOH USE. PATIENT STATES HE DRINKS DAILY ABOUT 4 MIXED DRINKS PER DAY. PATIENT STATES HE STOPPED ABRUPTLY. MD CALLED, NO ANSWER. LEFT VOICEMAIL WITH CALL-BACK NUMBER. AWAITING CALL BACK. WILL CONTINUE TO MONITOR PATIENT.
[2019-10-11] MEDS ORDERED: GABAPENTIN 100 MG CAP PO SCH ×2 (22:30→23:35)
[2019-10-11] MEDS ORDERED: chlordiazePOXIDE HCL 25 MG CAP PO PRN (22:30)
--- NOTE | 2019-10-11 23:30 | NUR ---
MD CALL BACK RECEIVED CALL-BACK FROM Newton ALEJO UPDATED MD ON PATIENT STATUS. RECEIVED NEW ORDERS, READ BACK AND VERIFIED (SEE NEW ORDERS). WILL CARRY OUT. WILL CONTINUE TO MONITOR.
[2019-10-11] MEDS ORDERED: FOLIC ACID 1 MG TAB PO ONE (23:45)
[2019-10-11] MEDS ORDERED: THIAMINE HCL 100 MG TAB PO ONE (23:45)
[2019-10-12] MEDS: HYDROcodone-ACET 5/325MG TAB PO PRN ×4 (02:54→21:09)
[2019-10-12] MEDS: DOCUSATE SOD 100 MG CAP PO SCH ×3 (05:57→21:07)
[2019-10-12 06:00] VITALS: BP 112/72
--- NOTE | 2019-10-12 06:20 | NUR ---
C/O PAIN / LEFT VOICEMAIL WITH MD WEEKS OFFICE PATIENT C/O OF STABBING ACUTE SEVERE PAIN IN LEFT ANKLE THAT IS SUDDEN ONSET OF SEVERITY. NO PRN MEDICATIONS AVAILABLE FOR SEVERE PAIN. MD CALLED, NO ANSWER. LEFT CALL-BACK NUMBER AND VOICEMAIL. AWAITING CALL BACK.
--- NOTE | 2019-10-12 07:00 | NUR ---
NO CALL BACK DID NOT RECEIVE CALL BACK FROM MD. NOTIFIED DAY SHIFT RN, VERBALIZED UNDERSTANDING.
--- NOTE | 2019-10-12 07:15 | NUR ---
OPENING SHIFT NOTE Assumed care of patient from shift stacker RN. Patient is alert and oriented x4, no signs of distress noted. Patient was updated on the plan of care and verbalized understanding. Patient is receiving oxygen at 2L/min via nasal cannula, saturation 96%. Bed is locked, in the lowest position, side rails up x2, and call lights are in reach. Patient was encouraged to call for assistance as needed.
--- NOTE | 2019-10-12 08:50 | NUR ---
PRN MN TX NOT INDICATED AT THIS TIME. PT IS AWAKE, ALERT AND ORIENTED. PT DENIES SOB OR ANY OTHER RESPIRATORY DISTRESS. PT ON 2L/MIN VIA NC, 98% O2 SATS, HR 89 BPM, RR18 BPM, BS ARE BIBASILARLY DIMINISHED TO AUSCULTATION. SKIN IS WARM AND DRY TO THE TOUCH. WILL CONTINUE TO MONITOR PT.
[2019-10-12 09:00] VITALS: BP 93/57
[2019-10-12] MEDS: LISINOPRIL 10 MG TAB PO SCH (10:00)
[2019-10-12] MEDS: ASPirin 81 mg TAB PO SCH (10:00)
[2019-10-12] MEDS: PANTOPRAZOLE 40 MG/10 ML VIAL INJ IV SCH (10:00)
[2019-10-12] MEDS: FOLIC ACID 1 MG TAB PO SCH (10:01)
[2019-10-12] MEDS: ENOXAPARIN SOD 60 MG/0.6 ML SYRINGE SC SCH ×2 (10:01→21:08)
[2019-10-12] MEDS: CLOPIDOGREL BISULFATE 75 MG TAB PO SCH (10:01)
[2019-10-12] MEDS: THIAMINE HCL 100 MG TAB PO SCH (10:01)
[2019-10-12 13:00] VITALS: BP 107/67
--- NOTE | 2019-10-12 13:26 | NUR ---
Arlen WEEKS AT BEDSIDE updated on patient status, plan of care was discussed with the patient and he verbalized understanding. New order received for 1L bolus of NS. Will input and administer as ordered.
[2019-10-12] MEDS ORDERED: SODIUM CHLORIDE 0.9% 500 ML IV ONE (13:30)
[2019-10-12 17:00] VITALS: BP 107/67
[2019-10-12 20:09] LABS: BUN/Creatinine Ratio 12.3; Calcium 8.3 mg/dL (8.5-10.1); Potassium 3.5 mmol/L (3.5-5.1)
[2019-10-12] MEDS: GABAPENTIN 300 MG CAP PO SCH (21:07)
[2019-10-12] MEDS: ATORVASTATIN 20 MG TAB PO SCH (21:07)
[2019-10-12 22:00] VITALS: BP 102/70
--- NOTE | 2019-10-12 22:50 | NUR ---
TACHYCARDIA PATIENT'S HEART RATE NOTED TO BE TACHYCARDIA ON HEART MONITOR, HIGHEST 159 BPM. UPON ENTERING ROOM, PATIENT IS NOTED TO BE EXERTING HIMSELF TAKING OFF HIS LEFT UNNA BOOT. PATIENT STATES HE IS TRYING TO TAKE IT OFF. PATIENT INFORMED THAT HIS HEART RATE IS ELEVATED. PATIENT REQUESTED THIS RN TO REMOVE UNNA BOOT. PATIENT STATES THAT HIS DOCTOR INFORMED HIM TO REMOVE BOOT IF HE FEELS ABNORMAL SYMPTOMS INCLUDING TINGLING / REDUCED SENSATION OR INCREASED PAIN. UNNA BOOT REMOVED AT THIS TIME. PATIENT TOLERATED WELL. WILL CONTINUE TO MONITOR.
--- NOTE | 2019-10-12 23:02 | NUR ---
HEART RATE RECHECK PATIENT'S HEART RATE AT THIS TIME 89 BPM. PATIENT RESTING IN BED. WILL CONTINUE TO MONITOR.
[2019-10-13] MEDS: HYDROcodone-ACET 5/325MG TAB PO PRN (03:10)
[2019-10-13] MEDS: DOCUSATE SOD 100 MG CAP PO SCH ×3 (05:34→21:40)
[2019-10-13 06:00] VITALS: BP 123/72
--- NOTE | 2019-10-13 06:27 | NUR ---
PT ASSESSED FOR PRN HHN TX. PT IS ON ROOM AIR, SPO2 92%, HR 74, RR 20. NO S/S OF RESPIRATORY DISTRESS. PT AWARE TO HAVE RT PAGED IF TX INDICATED. WILL CONTINUE TO MONITOR.
--- NOTE | 2019-10-13 07:30 | NUR ---
Opening Shift Note Assumed care of patient, pt awake and alert sitting up in bed. Pt is on Room air with even and unlabored respirations. No S/S of distress/SOB or pain at this time. Bed is in lowest position, wheels are locked, side rails up x2, and call light is within reach. Instructed on POC and to callfor assist PRN, will continue to monitor for changes Q1hr and PRN.
[2019-10-13 09:35] VITALS: BP 99/68
[2019-10-13] MEDS: ASPirin 81 mg TAB PO SCH (10:00)
[2019-10-13] MEDS: PANTOPRAZOLE 40 MG/10 ML VIAL INJ IV SCH (10:00)
[2019-10-13] MEDS: FOLIC ACID 1 MG TAB PO SCH (10:00)
[2019-10-13] MEDS: LISINOPRIL 10 MG TAB PO SCH (10:00)
[2019-10-13] MEDS: ENOXAPARIN SOD 60 MG/0.6 ML SYRINGE SC SCH ×2 (10:00→21:41)
[2019-10-13] MEDS: THIAMINE HCL 100 MG TAB PO SCH (10:00)
--- NOTE | 2019-10-13 10:40 | NUR ---
PT DOWN TO TRAVELING PLANT OPERATOR PT DOWN TO TRAVELING PLANT OPERATOR FOR PROCEDURE. PT ALERT AND AWAKE WITH EVEN AND UNLABORED RESPIRATIONS. NO S/S OF DISTRESS/SOB. PT TRANSPORTED BY BED IN STABLE CONDITION.
[2019-10-13] MEDS: CLOPIDOGREL BISULFATE 75 MG TAB PO SCH (10:51)
[2019-10-13] MEDS ORDERED: LIDOCAINE 2%HCL (LOCAL ANESTH.) INJ 20ML MDV ONE (10:55)
[2019-10-13] MEDS ORDERED: IODIXANOL 320MG/ML 100ML BTL IV ONE (10:56)
[2019-10-13] MEDS ORDERED: VERAPAMIL 2.5MG/ML INJ 2ML VIAL IV ONE (11:11)
[2019-10-13] MEDS ORDERED: fentaNYL CITRATE 100 MCG/2 ML VL ONE (11:11)
[2019-10-13] MEDS ORDERED: MIDAZOLAM HCL 1MG/1ML-2 ML VIAL ONE ×2 (11:11→12:16)
[2019-10-13] MEDS ORDERED: SODIUM CHL 0.9% 50 ML ONE (11:38)
[2019-10-13] MEDS ORDERED: ANGIOMAX 250 MG VIAL IV ONE (11:38)
[2019-10-13] MEDS ORDERED: CLOPIDOGREL BISULFATE 75 MG TAB ONE (12:21)
[2019-10-13] MEDS ORDERED: ASPirin 325 MG TAB ONE (12:21)
--- NOTE | 2019-10-13 13:50 | NUR ---
PT RETURNED TO FLOOR FROM [facility] PT RETURNED TO FLOOR. PT ALERT AND AWAKE WITH EVEN AND UNLABORED RESPIRATIONS. PT INCISION TO LEFT GROIN IS C/D/I. NO SWELLING, REDNESS OR BLEEDING NOTED AT THIS TIME. WILL CONTINUE TO MONITOR Q1H AND PRN.
[2019-10-13 17:00] VITALS: BP 114/70
--- NOTE | 2019-10-13 18:08 | NUR ---
PT STILL HAS NOT HAD A BM PT STILL HAS YET TO HAVE A BM. PER PT HAS NOT HAD ONE SINCE 10/04/19. PT CURRENTLY ON COLACE TID, WITHOUT SUCCESS. PTY DENIES ABD PAIN, BUT IS EXPERIENCING SOME NAUSEA. DR. Newton WEEKS PAGED. VOICEMAIL LEFT. CURRENTLY AWAITING RETURN CALL. WILL CONTINUE TO MONITOR.
[2019-10-13] MEDS ORDERED: BISACODYL 10 MG RECT SUPP PR ONE (18:15)
[2019-10-13] MEDS ORDERED: LACTULOSE 20Gm/30ML SOLN PO ONE (18:15)
[2019-10-13] MEDS ORDERED: POLYETHYLENE GLYCOL 17 GM PWDR PO ONE (18:15)
--- NOTE | 2019-10-13 18:45 | NUR ---
IV removal IV DC'd D/T leaking. Pt D/C'd with clean sterile technique, catheter fully intact. Pressure dressing applied to site. Patient tolerated well.
--- NOTE | 2019-10-13 18:50 | NUR ---
Closing note Patient awake and alert laying in bed. No S/S of distress/SOB or pain. Care endorsed to NOC RN, Jennifer.
--- NOTE | 2019-10-13 18:55 | NUR ---
Opening Shift Note: Assumed care of patient, awake and alert. No S/S of distress/SOB or pain. Bed in lowest locked position, side rails up x 2, call light within reach. Patient instructed on POC and to call for assist PRN, will continue to monitor for changes Q1hr and PRN.
--- NOTE | 2019-10-13 19:10 | NUR ---
IV insertion IV access obtained, via clean sterile technique by inserting [22] gauge catheter at [R FA] after [1] attempt(s). IV secured properly. No trauma to site. Patient tolerated well.
--- NOTE | 2019-10-13 20:45 | NUR ---
PATIENT REFUSED SUPPOSITORY AT THIS TIME. PATIENT STATES 'I HAVE HAD TWO BOWEL MOVEMENTS TODAY.'
--- NOTE | 2019-10-13 21:02 | NUR ---
Respiratory note: PT ASSESSED FOR PRN HHN TX. PT IS ON ROOM AIR, SPO2 95%, HR 103, RR 18. NO S/S OF RESPIRATORY DISTRESS. PT AWARE TO HAVE RT PAGED IF TX INDICATED.
[2019-10-13] MEDS: GABAPENTIN 300 MG CAP PO SCH (21:40)
[2019-10-13] MEDS: ATORVASTATIN 20 MG TAB PO SCH (21:40)
[2019-10-13 22:00] VITALS: BP 124/75
--- NOTE | 2019-10-14 03:04 | NUR ---
CLOSING NOTE: Patient resting in bed. No S/S of distress or pain at this time. Care endorsed.
--- NOTE | 2019-10-14 03:16 | NUR ---
Assumed care of patient Assumed care of patient. No S/S of distress/SOB or pain. Patient sleeping comfortably in bed, rails up x2, bed in lowest locked position, call light is within reach. Will continue to monitor for changes.
[2019-10-14] MEDS: HYDROcodone-ACET 5/325MG TAB PO PRN (05:26)
[2019-10-14] MEDS: DOCUSATE SOD 100 MG CAP PO SCH (05:27)
[2019-10-14 05:30] VITALS: BP 123/79
--- NOTE | 2019-10-14 07:30 | NUR ---
Opening Shift Note Received report and assumed care of patient, awake and alert. No S/S of distress/SOB or pain. Instructed on POC and Nursing routines,call light within reach patient reminded instructed to call for assistance. patient verbalized understanding.will continue to monitor for changes Q1hr and PRN.
--- NOTE | 2019-10-14 07:33 | NUR ---
Respiratory note: NO PRN TX GIVEN AT THIS TIME, SPO2 94% ON RA, 2L ON AT THE BEDSIDE, HR 95, RR 16. PT STATES HE IS BREATHING PRETTY GOOD, DENIES ANY NEEDS AT THIS TIME.
[2019-10-14] MEDS ORDERED: LORazepam 2MG/ML-1ML VIAL IV ONE (08:00)
--- NOTE | 2019-10-14 08:45 | NUR ---
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
[2019-10-14 08:46] VITALS: BP 123/79
[2019-10-14 09:11] VITALS: BP 115/74
--- NOTE | 2019-10-14 10:12 | NUR ---
Pt declined PT treatment today. Will attempt again tomorrow.
--- NOTE | 2019-10-14 10:15 | NUR ---
REFUSED PHYSICAL THERAPY TREATMENT
[2019-10-14] MEDS: FOLIC ACID 1 MG TAB PO SCH (10:47)
[2019-10-14] MEDS: ASPirin 81 mg TAB PO SCH (10:47)
[2019-10-14] MEDS: CLOPIDOGREL BISULFATE 75 MG TAB PO SCH (10:47)
[2019-10-14] MEDS: PANTOPRAZOLE 40 MG/10 ML VIAL INJ IV SCH (10:48)
[2019-10-14] MEDS: THIAMINE HCL 100 MG TAB PO SCH (10:48)
[2019-10-14] MEDS: ENOXAPARIN SOD 60 MG/0.6 ML SYRINGE SC SCH (10:49)
[2019-10-14] MEDS: LISINOPRIL 10 MG TAB PO SCH (10:49)
--- NOTE | 2019-10-14 12:00 | NUR ---
AMBULATES IN HALLWAY USING WALKER,PATIENT REQUEST TO GO OUT AND SMOKE ONCE IS HERE TO BRING CIGARETTES,EXPLAIN ASSUMING RISK OR INJURY THAT MAY OCCUR WHILE OUT SMOKING AND WILL NOT HOLD THIS FACILITY,EMPLOYEES AND PHYSICIAN RESPONSIBILITY FOR ANY RISK OR COMPLICATION ARISE.PATIENT VERBALIZED UNDERSTANDING.INFORMED CONSENT FOR SMOKING SIGNED BY PATIENT.
[2019-10-14] MEDS ORDERED: ASPI81CH43 PO (12:18)
[2019-10-14] MEDS ORDERED: POLY33504 PO (12:18)
[2019-10-14] MEDS ORDERED: CLOP75TA28 PO (12:18)
[2019-10-14] MEDS ORDERED: DOCU100C8 PO (12:18)
[2019-10-14] MEDS ORDERED: SIMV10TA84 PO (12:20)
--- NOTE | 2019-10-14 14:26 | NUR ---
I faxed home health order to [facility], walker order to [facility]. Per Melissa at [facility], she has given authorization to [facility] and [employer] does not need prior authorization.
--- NOTE | 2019-10-14 14:40 | NUR ---
MD VISIT DR.T. WEEKS HERE TO SEE AND EXAMINED PATIENT,RECEIVED ORDER TO DISCHARGE PATIENT ONCE CLEARED BY DR. JAMES
--- NOTE | 2019-10-14 15:22 | NUR ---
I received a call from [facility] (phone number [phone]) letting me know that they will see patient within 24-48 hours. I spoke with [facility] ([phone])-per Alyce they will deliver walker to bedside within 2 hours.
--- NOTE | 2019-10-14 15:45 | NUR ---
DR. JAMES HERE RECEIVED ORDER PATIENT CLEARED FOR DISCHARGE
--- NOTE | 2019-10-14 16:10 | NUR ---
Est energy needs [id number] kcal (30-35 kcal/kg BW 55.8kg) Est protein needs 56-61g (1-1.1g/kg BW 55.8kg) Dallin goldberg. Addendum: 10/14/19 at [address] Amended: Links added.
[2019-10-14 16:17] VITALS: BP 92/61
[2019-10-14 17:00] VITALS: BP 83/63
--- NOTE | 2019-10-14 17:00 | NUR ---
Discharge instructions given as ordered. Encourage to follow up with PMD,Dr. Campbell and Dr. Vieira as instructed. All questions and concerns addressed. Patient verbalized understanding. Medication reconciliation form completed and copy given to patient. IV removed with catheter intact, pressure dressing applied, Telemetry unit returned to ICU. Patient taken to vehicle via wheelchair with all personal belongings and provided walker, accompanied by staff ,family member waiting at ER lobby. No distress noted at time of departure.
[2019-10-14] MEDS ORDERED: FOLI1TAB6 PO (20:26)
[2019-10-14] MEDS ORDERED: THIA50CA PO (20:26)
== END 2019-10-14 17:00 | disposition home health service (06) | DRG 271 ==
LOC: ER 01:44 → TELE 01:45 → TELE-WESTW 08:54
PROVIDERS: ADMIT Hospitalist; ATTEND Internal Medicine
PROC: 047L3DZ Dilation of Left Femoral Artery with Intraluminal Device, Percutaneous Approach (ICD-10-PCS; principal; 2019-10-13)
PROC: 047S3ZZ Dilation of Left Posterior Tibial Artery, Percutaneous Approach (ICD-10-PCS; 2019-10-13)
PROC: 04CL3ZZ Extirpation of Matter from Left Femoral Artery, Percutaneous Approach (ICD-10-PCS; 2019-10-13)
PROC: B41G1ZZ Fluoroscopy of Left Lower Extremity Arteries using Low Osmolar Contrast (ICD-10-PCS; 2019-10-13)
PROC: B41F1ZZ Fluoroscopy of Right Lower Extremity Arteries using Low Osmolar Contrast (ICD-10-PCS; 2019-10-13)
DX: I73.9 Peripheral vascular disease, unspecified (principal); G45.9 Transient cerebral ischemic attack, unspecified; G81.91 Hemiplegia, unspecified affecting right dominant side; R64 Cachexia; Z68.1 Body mass index [BMI] 19.9 or less, adult; M50.30 Other cervical disc degeneration, unspecified cervical region; F10.20 Alcohol dependence, uncomplicated; M15.9 Polyosteoarthritis, unspecified; K21.9 Gastro-esophageal reflux disease without esophagitis; G25.81 Restless legs syndrome; J44.9 Chronic obstructive pulmonary disease, unspecified; F17.210 Nicotine dependence, cigarettes, uncomplicated; F41.9 Anxiety disorder, unspecified; G62.9 Polyneuropathy, unspecified; I10 Essential (primary) hypertension; M25.78 Osteophyte, vertebrae; Z80.0 Family history of malignant neoplasm of digestive organs; Z80.1 Family history of malignant neoplasm of trachea, bronchus and lung; Z82.49 Family history of ischemic heart disease and other diseases of the circulatory system
CPT/HCPCS: 36415; 37227; 37228; 70450; 70551; 71045; 72125; 75716; 80048; 80053; 80061; 83735; 83880; 84484; 85025; 85610; 85730; 93005; 93306; 93886; 93926; 97110; 97116; 97163; 97530; 99152; 99153; C1724; C1876; C9113; G0378; J2250; J2405; Q9967

== ENCOUNTER 2019-10-30 23:29 | Emergency (ER) | payer OTHER ==
[~2019-10-30] VITALS: Ht 170.2 cm; Wt 51.7 kg
[~2019-10-30 23:29] MED LIST changes: +ASPI81CH43 PO; +CLOP75TA28 PO; +DOCU100C8 PO; +FOLI1TAB6 PO; -HYDR-4833 PO; +POLY33504 PO; +SIMV10TA84 PO; +THIA50CA PO; +TRAM50TA2 PO
[2019-10-31] MEDS ORDERED: MORPHINE SULFATE 4 MG/ML SYR/VIAL IV ONE (02:45)
[2019-10-31] MEDS ORDERED: HYDROcodone-ACET 10/325MG TAB PO ONE (02:45)
[2019-10-31] MEDS ORDERED: ONDANSETRON HCL 4 MG/2 ML VIAL IV ONE (02:45)
[2019-10-31 02:47] LABS: Basophils # (auto) 0 10 ^3/uL (0-0.2); Basophils % (auto) 0.5 % (0.0-2.0); Eosinophils # (auto) 0.1 10 ^3/uL (0-0.8); Eosinophils % (auto) 1.9 % (0.0-7.0); Hemoglobin 15.8 g/dL (13.5-17.5); Lymphocytes # (auto) 2.4 10 ^3/uL (0.4-5.4); Lymphocytes % (auto) 35.6 % (10.0-50.0); Mean Corpuscular Hemoglobin 33.7 pg (28.0-32.0); Mean Corpuscular Hgb Conc. 34.4 g/dL (32.0-36.0); Mean Corpuscular Volume 98.1 fL (80.0-100.0); Monocytes # (auto) 0.5 10 ^3/uL (0-1.3); Monocytes % (auto) 8.1 % (0.0-12.0); Neutrophils # (auto) 3.6 10 ^3/uL (1.6-8.6); Neutrophils % (auto) 53.9 % (37.0-80.0); Platelet Count (auto) 341 10^3/uL (140-450); Red Cell Distribution Width 14.1 % (11.8-14.3); White Blood Cell 6.7 10^3/uL (4.4-10.8)
[2019-10-31 03:05] LABS: Alanine Aminotransferase 17 U/L (16-61); Albumin 3.7 g/dL (3.4-5.0); Anion Gap 6 (5-15); Aspartate Aminotransferase 23 U/L (15-37); BUN/Creatinine Ratio 5.7; Blood Urea Nitrogen 4 mg/dL (7-18); Calcium 9.2 mg/dL (8.5-10.1); Carbon Dioxide 30 mmol/L (21-32); Chloride 101 mmol/L (98-107); GFR African American 142 mL/min; GFR Non-African American 117 mL/min; Glucose 72 mg/dL (74-106); Magnesium 2.5 mg/dL (1.6-2.6); Potassium 4.2 mmol/L (3.5-5.1); Sodium 137 mmol/L (136-145)
[2019-10-31 03:09] LABS: Alkaline Phosphatase 128 U/L (45-117); Bilirubin, Total 0.6 mg/dL (0.2-1.0); Total Protein 8.5 g/dL (6.4-8.2)
[2019-10-31 03:14] LABS: INR 1.02 (0.9-1.15); Partial Thromboplastin Time 34.4 sec (23.64-32.05)
[2019-10-31] MEDS ORDERED: IOHEXOL 350 MG/ML 100ML IJ ONE (08:37)
[2019-10-31] MEDS ORDERED: HYDROcodone-ACET 5/325MG TAB PO ONE (08:45)
[2019-10-31] MEDS ORDERED: cefTRIAXone 1GM/50ML D5W 50 ML IV ONE (09:00)
[2019-10-31] MEDS ORDERED: KETOROLAC TROMETH 30 MG/ML 1ML VIAL IV ONE (11:00)
[2019-10-31 11:46] VITALS: BP 138/68
== END 2019-10-31 11:54 | disposition home or self-care (01) ==
LOC: ER 23:30
DX: R41.82 Altered mental status, unspecified (principal); E16.2 Hypoglycemia, unspecified; J44.9 Chronic obstructive pulmonary disease, unspecified; K21.9 Gastro-esophageal reflux disease without esophagitis; F17.210 Nicotine dependence, cigarettes, uncomplicated; Z86.73 Personal history of transient ischemic attack (TIA), and cerebral infarction without residual deficits
CPT/HCPCS: 36415; 70450; 71045; 71275; 73700; 80053; 83605; 83735; 83880; 84484; 85025; 85379; 85610; 85730; 87040; 93005; 96365; 96375; 99285; J0696; J1885; J2270; J2405; Q9967

== ENCOUNTER 2019-12-16 20:15 | Emergency (ER) | payer OTHER ==
[~2019-12-16] VITALS: Ht 165.1 cm; Wt 47.6 kg
[2019-12-16 20:25] VITALS: BP 127/81
[2019-12-16 22:22] LABS: Basophils # (auto) 0 10 ^3/uL (0-0.2); Basophils % (auto) 0.2 % (0.0-2.0); Eosinophils # (auto) 0 10 ^3/uL (0-0.8); Eosinophils % (auto) 0.3 % (0.0-7.0); Hematocrit 49.2 % (41.0-53.0); Hemoglobin 16.4 g/dL (13.5-17.5); Lymphocytes # (auto) 3.3 10 ^3/uL (0.4-5.4); Lymphocytes % (auto) 28.5 % (10.0-50.0); Mean Corpuscular Hemoglobin 33.2 pg (28.0-32.0); Mean Corpuscular Hgb Conc. 33.3 g/dL (32.0-36.0); Mean Corpuscular Volume 99.5 fL (80.0-100.0); Monocytes # (auto) 1.3 10 ^3/uL (0-1.3); Monocytes % (auto) 10.8 % (0.0-12.0); Neutrophils % (auto) 60.2 % (37.0-80.0); Platelet Count (auto) 238 10^3/uL (140-450); Red Blood Cells 4.95 10^6/uL (4.5-5.90); Red Cell Distribution Width 13.9 % (11.8-14.3); White Blood Cell 11.7 10^3/uL (4.4-10.8)
[2019-12-16 22:38] LABS: Albumin 3.6 g/dL (3.4-5.0); Calcium 8.7 mg/dL (8.5-10.1); Potassium 3.5 mmol/L (3.5-5.1)
[2019-12-16 22:42] LABS: BUN/Creatinine Ratio 9.1; Bilirubin, Total 0.9 mg/dL (0.2-1.0); Total Protein 7.6 g/dL (6.4-8.2)
== END 2019-12-17 00:30 | disposition left against medical advice (07) ==
LOC: ER 20:15
DX: M54.9 Dorsalgia, unspecified (principal); M25.562 Pain in left knee; M25.572 Pain in left ankle and joints of left foot; R51 Headache; Z53.21 Procedure and treatment not carried out due to patient leaving prior to being seen by health care provider; W18.39XA Other fall on same level, initial encounter; Y93.89 Activity, other specified; Y92.89 Other specified places as the place of occurrence of the external cause; Y99.8 Other external cause status
CPT/HCPCS: 36415; 80053; 85025; 93005

== ENCOUNTER 2020-01-01 16:04 | Inpatient (IN) | payer OTHER ==
[~2020-01-01] VITALS: Ht 165.1 cm; Wt 53.6 kg
[2020-01-01 18:14] LABS: Urine Bacteria NONE SEEN /hpf (None Seen); Urine Blood TRACE /uL (Negative); Urine Mucus FEW (None Seen); Urine Specific Gravity 1.027 (1.001-1.035); Urine WBC 1 /hpf (0 - 3)
[2020-01-01 18:15] LABS: Basophils # (auto) 0 10 ^3/uL (0-0.2); Basophils % (auto) 0.4 % (0.0-2.0); Eosinophils # (auto) 0 10 ^3/uL (0-0.8); Eosinophils % (auto) 0.1 % (0.0-7.0); Hematocrit 37.3 % (41.0-53.0); Hemoglobin 12.3 g/dL (13.5-17.5); Lymphocytes # (auto) 1.4 10 ^3/uL (0.4-5.4); Lymphocytes % (auto) 14.5 % (10.0-50.0); Mean Corpuscular Hemoglobin 33.1 pg (28.0-32.0); Mean Corpuscular Hgb Conc. 33.1 g/dL (32.0-36.0); Mean Corpuscular Volume 100.1 fL (80.0-100.0); Monocytes # (auto) 1.2 10 ^3/uL (0-1.3); Monocytes % (auto) 12.3 % (0.0-12.0); Neutrophils # (auto) 7.1 10 ^3/uL (1.6-8.6); Neutrophils % (auto) 72.7 % (37.0-80.0); Platelet Count (auto) 184 10^3/uL (140-450); Red Blood Cells 3.73 10^6/uL (4.5-5.90); Red Cell Distribution Width 14.2 % (11.8-14.3); White Blood Cell 9.7 10^3/uL (4.4-10.8)
[2020-01-01 18:25] LABS: Amphetamine Screen, Urine NEGATIVE (NEGATIVE); Barbiturate Scree,Urine NEGATIVE (NEGATIVE); Benzodiazephine Screen, Urine NEGATIVE (NEGATIVE); Cannabinoid Screen, Urine NEGATIVE (NEGATIVE); Cocaine Screen, Urine NEGATIVE (NEGATIVE); Opiate Scree,Urine NEGATIVE (NEGATIVE); Phencyclidine Screen, Urine NEGATIVE (NEGATIVE)
[2020-01-01 18:29] LABS: INR 1.02 (0.9-1.15); Partial Thromboplastin Time 39.3 sec (23.0-31.2)
[2020-01-01 18:36] LABS: Anion Gap 6 (5-15); Blood Urea Nitrogen 14 mg/dL (7-18); Calcium 7.7 mg/dL (8.5-10.1); Carbon Dioxide 27 mmol/L (21-32); Chloride 102 mmol/L (98-107); Glucose 106 mg/dL (74-106); Potassium 3.5 mmol/L (3.5-5.1); Sodium 135 mmol/L (136-145)
[2020-01-01 18:44] LABS: Alanine Aminotransferase 10 U/L (16-61); Albumin 2.5 g/dL (3.4-5.0); Alkaline Phosphatase 129 U/L (45-117); Aspartate Aminotransferase 15 U/L (15-37); BUN/Creatinine Ratio 23.3; Bilirubin, Total 0.7 mg/dL (0.2-1.0); GFR African American 170 mL/min; GFR Non-African American 140 mL/min; Total Protein 6.4 g/dL (6.4-8.2)
[2020-01-01] MEDS ORDERED: NITROGLYCERIN 0.4 MG SL TAB SL PRN (22:45)
[2020-01-01] MEDS ORDERED: MORPHINE SULF INJ 2 MG/ML SYRINGE 1ML IV PRN (22:45)
[2020-01-01] MEDS ORDERED: ONDANSETRON HCL 4 MG/2 ML VIAL IV PRN (22:45)
[2020-01-01] MEDS ORDERED: TEMAZEPAM 15 MG CAP PO PRN (22:45)
--- NOTE | 2020-01-01 23:45 | NUR ---
Patient arrived to the unit from the emergency room via wheelchair. Patient reports no pain at this moment. He is AOx4 and ambulatory. I explained to patient that bed alarm will be on due to his reason for visit. I also told him he is allowed to get up to restroom but call first so I or other staff can walk with him. Has no complaints of shortness of breath on room air. Plan of care was reviewed with patient and all questions answered. Bed is locked in lowest position with side rails up x2. Will continue to monitor.
[2020-01-02] VITALS (15 sets, daily range): BP systolic 65–129; BP diastolic 34–74
[2020-01-02] MEDS ORDERED: TIZA4TAB9 PO (00:38)
[2020-01-02] MEDS ORDERED: OMEP20TA PO (00:38)
[2020-01-02] MEDS ORDERED: BUSP5TAB51 PO (00:38)
[2020-01-02] MEDS ORDERED: CALC600T10 PO (00:38)
[2020-01-02] MEDS ORDERED: MUPI2CRE17 EX (00:38)
[2020-01-02 06:51] LABS: Basophils # (auto) 0 10 ^3/uL (0-0.2); Basophils % (auto) 0.2 % (0.0-2.0); Eosinophils # (auto) 0.1 10 ^3/uL (0-0.8); Eosinophils % (auto) 0.9 % (0.0-7.0); Hematocrit 36.8 % (41.0-53.0); Hemoglobin 12.5 g/dL (13.5-17.5); Lymphocytes # (auto) 1.7 10 ^3/uL (0.4-5.4); Lymphocytes % (auto) 24.5 % (10.0-50.0); Mean Corpuscular Hemoglobin 33.8 pg (28.0-32.0); Mean Corpuscular Hgb Conc. 34.1 g/dL (32.0-36.0); Mean Corpuscular Volume 99.4 fL (80.0-100.0); Monocytes # (auto) 0.6 10 ^3/uL (0-1.3); Monocytes % (auto) 8.5 % (0.0-12.0); Neutrophils # (auto) 4.6 10 ^3/uL (1.6-8.6); Neutrophils % (auto) 65.9 % (37.0-80.0); Nucleated Red Blood Cells % 0.1 %; Platelet Count (auto) 170 10^3/uL (140-450); Red Blood Cells 3.71 10^6/uL (4.5-5.90); Red Cell Distribution Width 14.1 % (11.8-14.3)
[2020-01-02 07:08] LABS: Calcium 7.7 mg/dL (8.5-10.1)
--- NOTE | 2020-01-02 07:10 | NUR ---
MRSA swab sent to lab at this time.
[2020-01-02] MEDS: ASPirin 81 mg TAB PO SCH (09:36)
[2020-01-02] MEDS: PANTOPRAZOLE 40 MG TAB PO SCH ×2 (09:36→22:21)
[2020-01-02] MEDS: FOLIC ACID 1 MG TAB PO SCH (09:36)
[2020-01-02] MEDS: CLOPIDOGREL BISULFATE 75 MG TAB PO SCH (09:37)
[2020-01-02] MEDS: ENOXAPARIN SOD 40 MG/0.4 ML SYRINGE SC SCH (09:37)
--- NOTE | 2020-01-02 10:31 | NUR ---
Opening Shift Note Assumed care of patient, awake and alert. No S/S of distress/SOB or pain. Insructed on POC and to callfor assist PRN, will continue to monitor for changes Q1hr and PRN. Addendum: 01/02/20 at 1032 by LAVINIA DUEÑAS RN RN Time change: 0700
[2020-01-02] MEDS ORDERED: SPIRONOLACTONE 25 MG TAB PO ONE (14:15)
[2020-01-02] MEDS ORDERED: POTASSIUM EFFERVESENT TAB 25 MEQ PO ONE (14:15)
--- NOTE | 2020-01-02 14:20 | NUR ---
MD MONIQUE AT BEDSIDE UPDATED MD ON PATIENT'S STATUS INCLUDING ORTHOSTATIC VITALS. MD IS AWARE AND WILL PUT IN NEW ORDERS.
[2020-01-02] MEDS ORDERED: SODIUM CHLORIDE 0.9% 250 ML IV ONE (14:30)
[2020-01-02] MEDS: FLUDROCORTISONE ACETATE 0.1 MG TAB PO SCH ×2 (15:01→22:21)
--- NOTE | 2020-01-02 17:48 | NUR ---
Assessment Patient is a 74-year-old male who is alert and oriented. Unable to speak to patient. Assessment was completed with patient Simi . Prior to admission patient lived home with his Simi and functioned with assistance. Simi informed me she helps patient with his ADLs. Simi informed me patient has a walker for home use. Advised Simi there is a social service consult for home health safety evaluation. Information Simi clinical information will be faxed to [facility]. Informed Simi she has a right to participate in all discharge planning. Simi verbalized understanding and agreed to discharge plan. Faxed clinical information to [facility]. Per Jazmyne with [facility] patient has been accepted and service to start within 24-48hrs upon d/c day. Addendum: 01/02/20 at 1752 by AGNIESZKA VARGAS Amended: Links added.
--- NOTE | 2020-01-02 18:50 | NUR ---
CLOSING SHIFT NOTE PATIENT HAS NO S/S OF DISTRESS/SOB OR PAIN AT THIS TIME. WILL ENDORSE CARE TO PLASTIC INJECTION MOLD MAKER RN.
--- NOTE | 2020-01-02 19:35 | NUR ---
Opening Shift Note Assumed care of patient, awake and alert. No S/S of distress/SOB or pain. Safety measures in place, bed in lowest locked position, bed rails raised x2, call light within reach. Instructed on POC and to call for assist PRN, will continue to monitor for changes Q1hr and PRN.
[2020-01-02] MEDS: ACETAMINOPHEN 325 MG TAB PO PRN (20:14)
[2020-01-02] MEDS ORDERED: FLUDROCORTISONE ACETATE 0.1 MG TAB PO SCH (22:00)
[2020-01-02] MEDS ORDERED: ATORVASTATIN 20 MG TAB PO SCH (22:00)
[2020-01-03] VITALS (10 sets, daily range): BP systolic 106–144; BP diastolic 48–83
[2020-01-03] MEDS: ACETAMINOPHEN 325 MG TAB PO PRN ×2 (03:49→14:25)
--- NOTE | 2020-01-03 04:32 | NUR ---
called, this RN updated on patient status. verbalized understanding.
--- NOTE | 2020-01-03 07:42 | NUR ---
Opening Shift Note Assumed care of patient from noc shift, awake and alert. No S/S of distress/SOB or pain. Safety measures in place, bed in lowest locked position, bed rails raised x2, call light within reach. Instructed on POC and to call for assist PRN, will continue to monitor for changes Q1hr and PRN.
[2020-01-03] MEDS: ENOXAPARIN SOD 40 MG/0.4 ML SYRINGE SC SCH (10:25)
[2020-01-03] MEDS: ASPirin 81 mg TAB PO SCH (10:25)
[2020-01-03] MEDS: CLOPIDOGREL BISULFATE 75 MG TAB PO SCH (10:25)
[2020-01-03] MEDS: FLUDROCORTISONE ACETATE 0.1 MG TAB PO SCH (10:26)
[2020-01-03] MEDS: FOLIC ACID 1 MG TAB PO SCH (10:26)
[2020-01-03] MEDS: PANTOPRAZOLE 40 MG TAB PO SCH (10:32)
[2020-01-03] MEDS ORDERED: FLU01T PO (10:49)
--- NOTE | 2020-01-03 15:30 | NUR ---
patient is discharged at this time per MD's order. Discharge summary and follow up instructions provided. IV discontinued and tele monitor returned to ICU.
== END 2020-01-03 15:30 | disposition home or self-care (01) | DRG 312 ==
LOC: ER 16:04 → TELE 16:05 → TELE-WESTW 23:09
PROVIDERS: ADMIT Nurse Practitioner; ATTEND Hospitalist
DX: I95.1 Orthostatic hypotension (principal); Z68.1 Body mass index [BMI] 19.9 or less, adult; E44.0 Moderate protein-calorie malnutrition; J98.11 Atelectasis; I67.82 Cerebral ischemia; I10 Essential (primary) hypertension; D64.9 Anemia, unspecified; F10.20 Alcohol dependence, uncomplicated; E78.5 Hyperlipidemia, unspecified; E87.6 Hypokalemia; F17.210 Nicotine dependence, cigarettes, uncomplicated; G25.81 Restless legs syndrome; G89.29 Other chronic pain; K21.9 Gastro-esophageal reflux disease without esophagitis; M54.9 Dorsalgia, unspecified; I73.9 Peripheral vascular disease, unspecified; I25.10 Atherosclerotic heart disease of native coronary artery without angina pectoris; J44.9 Chronic obstructive pulmonary disease, unspecified; N40.0 Benign prostatic hyperplasia without lower urinary tract symptoms; Z80.1 Family history of malignant neoplasm of trachea, bronchus and lung; Z86.73 Personal history of transient ischemic attack (TIA), and cerebral infarction without residual deficits; Z82.49 Family history of ischemic heart disease and other diseases of the circulatory system; Z80.0 Family history of malignant neoplasm of digestive organs
CPT/HCPCS: 36415; 70450; 71045; 72125; 72192; 80048; 80053; 80307; 81001; 83735; 83880; 84443; 84484; 85025; 85610; 85730; 87081; 93306; 93886; 96360; 96372; 97163; G0378

== ENCOUNTER 2020-03-22 21:07 | Emergency (ER) | payer OTHER ==
[~2020-03-22] VITALS: Ht 165.1 cm; Wt 52.2 kg
[~2020-03-22 21:07] MED LIST changes: +BUSP5TAB51 PO; +CALC600T10 PO; +FLU01T PO; -GABA300C10; -THIA50CA PO
[2020-03-22 22:16] LABS: Basophils # (auto) 0 10 ^3/uL (0-0.2); Basophils % (auto) 0.3 % (0.0-2.0); Eosinophils # (auto) 0.2 10 ^3/uL (0-0.8); Eosinophils % (auto) 2.1 % (0.0-7.0); Hematocrit 34.9 % (41.0-53.0); Hemoglobin 11.6 g/dL (13.5-17.5); Mean Corpuscular Hgb Conc. 33.1 g/dL (32.0-36.0); Mean Corpuscular Volume 93.5 fL (80.0-100.0); Monocytes # (auto) 0.5 10 ^3/uL (0-1.3); Monocytes % (auto) 6.2 % (0.0-12.0); Neutrophils # (auto) 5.7 10 ^3/uL (1.6-8.6); Neutrophils % (auto) 67.4 % (37.0-80.0); Platelet Count (auto) 229 10^3/uL (140-450); Red Blood Cells 3.74 10^6/uL (4.5-5.90); Red Cell Distribution Width 14.6 % (11.8-14.3); White Blood Cell 8.4 10^3/uL (4.4-10.8)
[2020-03-22 22:38] LABS: Alanine Aminotransferase 14 U/L (16-61); Albumin 3.4 g/dL (3.4-5.0); Anion Gap 7 (5-15); Aspartate Aminotransferase 12 U/L (15-37); BUN/Creatinine Ratio 16.7; Blood Urea Nitrogen 12 mg/dL (7-18); Calcium 8.4 mg/dL (8.5-10.1); Carbon Dioxide 24 mmol/L (21-32); Chloride 110 mmol/L (98-107); GFR African American 138 mL/min; GFR Non-African American 114 mL/min; Glucose 94 mg/dL (74-106); Sodium 141 mmol/L (136-145)
[2020-03-22 22:41] LABS: Alkaline Phosphatase 85 U/L (45-117); Bilirubin, Total 0.5 mg/dL (0.2-1.0); Total Protein 7.1 g/dL (6.4-8.2)
[2020-03-22 22:45] LABS: Partial Thromboplastin Time 31.4 sec (23.0-31.2)
[2020-03-23 09:07] VITALS: BP 146/86
== END 2020-03-23 11:14 | disposition left against medical advice (07) ==
LOC: ER 21:10
DX: G45.8 Other transient cerebral ischemic attacks and related syndromes (principal); F41.9 Anxiety disorder, unspecified; F17.210 Nicotine dependence, cigarettes, uncomplicated; J44.9 Chronic obstructive pulmonary disease, unspecified; K21.9 Gastro-esophageal reflux disease without esophagitis; I10 Essential (primary) hypertension; E78.5 Hyperlipidemia, unspecified; Z79.899 Other long term (current) drug therapy
CPT/HCPCS: 36415; 70450; 80053; 84484; 85025; 85610; 85730; 93005

== ENCOUNTER 2020-07-10 22:13 | Emergency (ER) | payer OTHER ==
[~2020-07-10] VITALS: Ht 175.3 cm; Wt 53.5 kg
[~2020-07-10 22:13] MED LIST changes: +DOCU100C10 PO; -DOCU100C8 PO
[2020-07-10 23:05] LABS: Basophils # (auto) 0 10 ^3/uL (0-0.2); Basophils % (auto) 0.6 % (0.0-2.0); Eosinophils # (auto) 0.1 10 ^3/uL (0-0.8); Eosinophils % (auto) 1.9 % (0.0-7.0); Hemoglobin 15.8 g/dL (13.5-17.5); Lymphocytes # (auto) 2.6 10 ^3/uL (0.4-5.4); Lymphocytes % (auto) 45.5 % (10.0-50.0); Mean Corpuscular Hemoglobin 34.3 pg (28.0-32.0); Mean Corpuscular Hgb Conc. 34.3 g/dL (32.0-36.0); Mean Corpuscular Volume 100.2 fL (80.0-100.0); Monocytes # (auto) 0.6 10 ^3/uL (0-1.3); Monocytes % (auto) 10.5 % (0.0-12.0); Neutrophils # (auto) 2.3 10 ^3/uL (1.6-8.6); Neutrophils % (auto) 41.5 % (37.0-80.0); Nucleated Red Blood Cells % 0.1 %; Platelet Count (auto) 149 10^3/uL (140-450); Red Blood Cells 4.59 10^6/uL (4.5-5.90); Red Cell Distribution Width 16.2 % (11.8-14.3); White Blood Cell 5.6 10^3/uL (4.4-10.8)
[2020-07-10 23:23] LABS: Albumin 3.6 g/dL (3.4-5.0); Calcium 8.7 mg/dL (8.5-10.1); Potassium 3.1 mmol/L (3.5-5.1)
[2020-07-10 23:26] LABS: BUN/Creatinine Ratio 7.1; Bilirubin, Total 0.6 mg/dL (0.2-1.0); Total Protein 7.9 g/dL (6.4-8.2)
[2020-07-11 00:50] VITALS: BP 133/80
[2020-07-11] MEDS ORDERED: GABAPENTIN 300 MG CAP PO ONE (01:00)
[2020-07-11] MEDS ORDERED: busPIRone HCL 10 MG TAB PO ONE (01:00)
== END 2020-07-11 02:37 | disposition home or self-care (01) ==
LOC: ER 22:13 → EDBD 22:13 → ER 07-11 02:34
DX: R55 Syncope and collapse (principal); R53.1 Weakness; J44.9 Chronic obstructive pulmonary disease, unspecified; K21.9 Gastro-esophageal reflux disease without esophagitis; E78.5 Hyperlipidemia, unspecified; I10 Essential (primary) hypertension; F17.210 Nicotine dependence, cigarettes, uncomplicated; Z86.73 Personal history of transient ischemic attack (TIA), and cerebral infarction without residual deficits
CPT/HCPCS: 36415; 70450; 80053; 85025; 93005

== ENCOUNTER 2021-07-06 01:24 | Inpatient (IN) | payer OTHER ==
[~2021-07-06] VITALS: Ht 167.6 cm; Wt 68.5 kg
[2021-07-06] VITALS (56 sets, daily range): BP systolic 89–124; BP diastolic 46–66
[~2021-07-06 01:24] MED LIST changes: -ROPI1TAB2; +ROPI1TAB4
[2021-07-06] MEDS ORDERED: IPRATROPIUM BROM 0.5 MG/2.5ML INH SOL NEB ONE (02:15)
[2021-07-06] MEDS ORDERED: methylPREDNISolone SOD SUCC 125 MG/2 ML VL IV ONE (02:15)
[2021-07-06] MEDS ORDERED: ALBUTEROL SULF 2.5 MG/0.5ML(0.5%) NEB SOLN NEB ONE (02:15)
[2021-07-06] MEDS ORDERED: ADENOSINE 6 MG/2 ML INJ IV ONE ×5 (02:21→03:00)
[2021-07-06 02:29] LABS: Basophils # (auto) 0.1 10 ^3/uL (0-0.2); Basophils % (auto) 1.3 % (0.0-2.0); Eosinophils # (auto) 0 10 ^3/uL (0-0.8); Eosinophils % (auto) 0.3 % (0.0-7.0); Hematocrit 41.8 % (41.0-53.0); Hemoglobin 14.1 g/dL (13.5-17.5); Lymphocytes # (auto) 0.4 10 ^3/uL (0.4-5.4); Lymphocytes % (auto) 8.8 % (10.0-50.0); Mean Corpuscular Hemoglobin 32.4 pg (28.0-32.0); Mean Corpuscular Hgb Conc. 33.8 g/dL (32.0-36.0); Mean Corpuscular Volume 95.9 fL (80.0-100.0); Monocytes # (auto) 0 10 ^3/uL (0-1.3); Monocytes % (auto) 0.5 % (0.0-12.0); Neutrophils # (auto) 4.4 10 ^3/uL (1.6-8.6); Neutrophils % (auto) 89.1 % (37.0-80.0); Nucleated Red Blood Cells % 0.1 %; Red Blood Cells 4.36 10^6/uL (4.5-5.90); Red Cell Distribution Width 14.9 % (11.8-14.3); White Blood Cell 4.9 10^3/uL (4.4-10.8)
[2021-07-06] MEDS ORDERED: dilTIAZem HCL 50 MG/10 ML VIAL IV ONE (02:30)
[2021-07-06] MEDS ORDERED: dilTIAZem 25 MG/5 ML VIAL IV ONE ×2 (02:31→03:00)
[2021-07-06] MEDS ORDERED: ONDANSETRON HCL 4 MG/2 ML VIAL ONE (02:37)
[2021-07-06 02:43] LABS: Albumin 3.2 g/dL (3.4-5.0); BUN/Creatinine Ratio 12.1; Calcium 9.5 mg/dL (8.5-10.1); Potassium 3.6 mmol/L (3.5-5.1)
[2021-07-06 02:47] LABS: Bilirubin, Total 0.6 mg/dL (0.2-1.0); Total Protein 7.5 g/dL (6.4-8.2)
[2021-07-06] MEDS ORDERED: VANCOMYCIN 1GM/250ML 250 ML IV ONE ×2 (02:48→03:00)
[2021-07-06] MEDS: MAGNESIUM SULFATE 1GM/100ML 100 ML IV SCH ×4 (02:50→04:03)
[2021-07-06] MEDS ORDERED: dilTIAZem 125mg/125ml BAG KIT 125 ML IV ONE (03:00)
[2021-07-06] MEDS ORDERED: PIPERACILLIN-TAZOB 3.375GM 100 ML IV ONE (03:00)
[2021-07-06] MEDS ORDERED: ONDANSETRON HCL 4 MG/2 ML VIAL IV ONE (03:00)
[2021-07-06] MEDS ORDERED: LACTATED RINGER'S 1,000 ML IV ONE (04:00)
[2021-07-06 04:05] LABS: Lactic Acid w/Reflex 4.3 mmol/L (0.4-2.0)
[2021-07-06] MEDS ORDERED: HYDROcodone-ACET 5/325MG TAB PO ONE (04:30)
[2021-07-06] MEDS ORDERED: ACETAMINOPHEN 325 MG TAB PO PRN (05:00)
[2021-07-06] MEDS ORDERED: ONDANSETRON HCL 4 MG/2 ML VIAL IV PRN (05:00)
[2021-07-06] MEDS ORDERED: TEMAZEPAM 15 MG CAP PO PRN (05:00)
[2021-07-06] MEDS ORDERED: ALBUTEROL SULF 2.5 MG/0.5ML(0.5%) NEB SOLN NEB PRN (05:00)
[2021-07-06] MEDS ORDERED: NITROGLYCERIN 0.4 MG SL TAB SL PRN (05:00)
[2021-07-06] MEDS ORDERED: AZITHROMYCIN 250 MG TAB PO ONE (05:00)
[2021-07-06] MEDS ORDERED: IPRATROPIUM BROM 0.5 MG/2.5ML INH SOL NEB PRN (05:00)
[2021-07-06] MEDS ORDERED: MORPHINE SULFATE INJECTION 2 MG/ML SYRG IV PRN (05:00)
[2021-07-06] MEDS: ALBUTEROL SULF 2.5 MG/0.5ML(0.5%) NEB SOLN NEB SCH ×3 (06:18→18:28)
[2021-07-06] MEDS: IPRATROPIUM BROM 0.5 MG/2.5ML INH SOL NEB SCH ×3 (06:18→18:28)
[2021-07-06] MEDS: methylPREDNISolone SOD SUCC 125 MG/2 ML VL IV SCH ×3 (06:34→17:37)
[2021-07-06 06:40] LABS: Blood Alcohol < 3.0 mg/dL (0-5)
[2021-07-06] MEDS: SODIUM CHLORIDE 0.9% 1,000 ML IV SCH (06:45)
[2021-07-06 06:48] LABS: CRP High Sensitivity 1.31 mg/dL (< 0.3)
[2021-07-06 07:05] LABS: Amphetamine Screen, Urine NEGATIVE (NEGATIVE); Barbiturate Scree,Urine NEGATIVE (NEGATIVE); Benzodiazephine Screen, Urine NEGATIVE (NEGATIVE); Cannabinoid Screen, Urine NEGATIVE (NEGATIVE); Cocaine Screen, Urine NEGATIVE (NEGATIVE); Opiate Scree,Urine NEGATIVE (NEGATIVE); Phencyclidine Screen, Urine NEGATIVE (NEGATIVE)
[2021-07-06] MEDS: CLOPIDOGREL BISULFATE 75 MG TAB PO SCH (09:23)
[2021-07-06] MEDS: FOLIC ACID 1 MG TAB PO SCH (09:23)
[2021-07-06] MEDS: ASPirin 81 mg TAB PO SCH (09:23)
[2021-07-06] MEDS: PANTOPRAZOLE 40 MG TAB PO SCH (09:23)
[2021-07-06] MEDS: AZITHROMYCIN 250 MG TAB PO SCH (09:28)
[2021-07-06] MEDS: ENOXAPARIN SOD 40 MG/0.4 ML SYRINGE SC SCH (09:36)
[2021-07-06] MEDS ORDERED: VANCOMYCIN PER PHARMACY 0 MG IV SCH (12:15)
[2021-07-06] MEDS ORDERED: dilTIAZem 120MG ER CAP PO ONE (12:15)
[2021-07-06] MEDS: HYDROcodone-ACET 5/325MG TAB PO PRN ×2 (13:09→20:25)
[2021-07-06] MEDS: BUDESONIDE (INHALATION) 0.5 MG/2 ML NEB NEB SCH (18:28)
[2021-07-06] MEDS: SENNA 8.6 MG TAB PO SCH (21:45)
[2021-07-06] MEDS: PRAVASTATIN SODIUM 20 MG TAB PO SCH (21:45)
[2021-07-07] VITALS (44 sets, daily range): BP systolic 86–137; BP diastolic 26–74
[2021-07-07] MEDS: ALBUTEROL SULF 2.5 MG/0.5ML(0.5%) NEB SOLN NEB SCH ×4 (00:12→18:25)
[2021-07-07] MEDS: IPRATROPIUM BROM 0.5 MG/2.5ML INH SOL NEB SCH ×4 (00:12→18:25)
[2021-07-07] MEDS: methylPREDNISolone SOD SUCC 125 MG/2 ML VL IV SCH ×4 (00:14→17:43)
[2021-07-07] MEDS: SODIUM CHLORIDE 0.9% 1,000 ML IV SCH ×2 (00:18→20:00)
[2021-07-07] MEDS: VANCOMYCIN 1GM/250ML 250 ML IV SCH (03:43)
[2021-07-07 06:33] LABS: Basophils # (auto) 0 10 ^3/uL (0-0.2); Basophils % (auto) 0.1 % (0.0-2.0); Eosinophils # (auto) 0 10 ^3/uL (0-0.8); Hematocrit 35.5 % (41.0-53.0); Hemoglobin 11.9 g/dL (13.5-17.5); Lymphocytes # (auto) 0.5 10 ^3/uL (0.4-5.4); Mean Corpuscular Hemoglobin 31.9 pg (28.0-32.0); Mean Corpuscular Hgb Conc. 33.6 g/dL (32.0-36.0); Mean Corpuscular Volume 94.9 fL (80.0-100.0); Monocytes # (auto) 0.3 10 ^3/uL (0-1.3); Monocytes % (auto) 3.3 % (0.0-12.0); Neutrophils # (auto) 9.1 10 ^3/uL (1.6-8.6); Neutrophils % (auto) 91.6 % (37.0-80.0); Nucleated Red Blood Cells % 0.1 %; Red Blood Cells 3.74 10^6/uL (4.5-5.90); Red Cell Distribution Width 14.9 % (11.8-14.3); White Blood Cell 9.9 10^3/uL (4.4-10.8)
[2021-07-07 06:51] LABS: Albumin 2.6 g/dL (3.4-5.0); Calcium 8.4 mg/dL (8.5-10.1); Magnesium 2.6 mg/dL (1.6-2.6); Potassium 3.9 mmol/L (3.5-5.1)
[2021-07-07 06:52] LABS: BUN/Creatinine Ratio 19.2
[2021-07-07 06:55] LABS: Bilirubin, Total 0.4 mg/dL (0.2-1.0); Total Protein 6.2 g/dL (6.4-8.2)
[2021-07-07] MEDS: cefTRIAXone 1GM/50ML D5W 50 ML IV SCH (08:13)
[2021-07-07] MEDS: BUDESONIDE (INHALATION) 0.5 MG/2 ML NEB NEB SCH ×2 (08:31→18:25)
[2021-07-07] MEDS: PANTOPRAZOLE 40 MG TAB PO SCH (09:12)
[2021-07-07] MEDS: AZITHROMYCIN 250 MG TAB PO SCH (09:12)
[2021-07-07] MEDS: FOLIC ACID 1 MG TAB PO SCH (09:13)
[2021-07-07] MEDS: CLOPIDOGREL BISULFATE 75 MG TAB PO SCH (09:14)
[2021-07-07] MEDS: ASPirin 81 mg TAB PO SCH (09:14)
[2021-07-07] MEDS: dilTIAZem 120MG ER CAP PO SCH (09:14)
[2021-07-07] MEDS: ENOXAPARIN SOD 40 MG/0.4 ML SYRINGE SC SCH (09:14)
[2021-07-07 14:10] LABS: INR 1.12 (0.9-1.15)
[2021-07-07] MEDS: PRAVASTATIN SODIUM 20 MG TAB PO SCH (21:24)
[2021-07-07] MEDS: traZODone HCL 50 MG TAB PO SCH (21:25)
[2021-07-07] MEDS: PRAMIPEXOLE DIHYDROCHLORIDE MO 0.25 MG TAB PO SCH (21:25)
[2021-07-07] MEDS: GABAPENTIN 300 MG CAP PO SCH (21:25)
[2021-07-07] MEDS: SENNA 8.6 MG TAB PO SCH (21:26)
[2021-07-08] VITALS (12 sets, daily range): BP systolic 101–136; BP diastolic 60–71
[2021-07-08] MEDS: methylPREDNISolone SOD SUCC 125 MG/2 ML VL IV SCH
[2021-07-08] MEDS: ALBUTEROL SULF 2.5 MG/0.5ML(0.5%) NEB SOLN NEB SCH ×5 (00:08→19:05)
[2021-07-08] MEDS: IPRATROPIUM BROM 0.5 MG/2.5ML INH SOL NEB SCH ×5 (00:09→19:05)
[2021-07-08] MEDS: VANCOMYCIN 1GM/250ML 250 ML IV SCH (03:54)
[2021-07-08 04:29] LABS: Potassium 3.8 mmol/L (3.5-5.1)
[2021-07-08 04:33] LABS: Albumin 2.4 g/dL (3.4-5.0); BUN/Creatinine Ratio 19.7; Calcium 8.1 mg/dL (8.5-10.1)
[2021-07-08 04:35] LABS: Bilirubin, Total 0.3 mg/dL (0.2-1.0); Total Protein 5.7 g/dL (6.4-8.2)
[2021-07-08] MEDS: PRAMIPEXOLE DIHYDROCHLORIDE MO 0.25 MG TAB PO SCH ×3 (06:00→22:13)
[2021-07-08] MEDS: BUDESONIDE (INHALATION) 0.5 MG/2 ML NEB NEB SCH ×2 (06:30→19:06)
[2021-07-08] MEDS: SODIUM CHLORIDE 0.9% 1,000 ML IV SCH (07:00)
[2021-07-08] MEDS: cefTRIAXone 1GM/50ML D5W 50 ML IV SCH (09:00)
[2021-07-08] MEDS: dilTIAZem 120MG ER CAP PO SCH (10:00)
[2021-07-08] MEDS: ASPirin 81 mg TAB PO SCH (10:00)
[2021-07-08] MEDS: FOLIC ACID 1 MG TAB PO SCH (10:00)
[2021-07-08] MEDS: CLOPIDOGREL BISULFATE 75 MG TAB PO SCH (10:00)
[2021-07-08] MEDS: AZITHROMYCIN 250 MG TAB PO SCH (10:00)
[2021-07-08] MEDS: ENOXAPARIN SOD 40 MG/0.4 ML SYRINGE SC SCH (10:00)
[2021-07-08] MEDS: GABAPENTIN 300 MG CAP PO SCH ×2 (10:00→22:14)
[2021-07-08] MEDS: PANTOPRAZOLE 40 MG TAB PO SCH (10:00)
[2021-07-08] MEDS ORDERED: IODIXANOL 320MG/ML 100ML BTL IV ONE (11:51)
[2021-07-08] MEDS ORDERED: LIDOCAINE 2%HCL (LOCAL ANESTH.) INJ 10ml MDV ONE (11:51)
[2021-07-08] MEDS ORDERED: ANGIOMAX 250 MG VIAL IV ONE (11:52)
[2021-07-08] MEDS ORDERED: MIDAZOLAM HCL 2MG/2ML 2ml VIAL (1mg/ml) ONE (11:52)
[2021-07-08] MEDS ORDERED: fentaNYL CITRATE 100 MCG/2 ML VL ONE (11:52)
[2021-07-08] MEDS ORDERED: SODIUM CHL 0.9% 0 ML ONE (11:53)
[2021-07-08] MEDS: PRAVASTATIN SODIUM 20 MG TAB PO SCH (22:13)
[2021-07-08] MEDS: SENNA 8.6 MG TAB PO SCH (22:13)
[2021-07-08] MEDS: traZODone HCL 50 MG TAB PO SCH (22:13)
[2021-07-09 03:11] LABS: Basophils # (auto) 0 10 ^3/uL (0-0.2); Basophils % (auto) 0.1 % (0.0-2.0); Eosinophils # (auto) 0 10 ^3/uL (0-0.8); Hematocrit 37.1 % (41.0-53.0); Hemoglobin 12.4 g/dL (13.5-17.5); Lymphocytes # (auto) 0.8 10 ^3/uL (0.4-5.4); Lymphocytes % (auto) 11.6 % (10.0-50.0); Mean Corpuscular Hemoglobin 31.8 pg (28.0-32.0); Mean Corpuscular Hgb Conc. 33.5 g/dL (32.0-36.0); Mean Corpuscular Volume 94.9 fL (80.0-100.0); Monocytes # (auto) 0.4 10 ^3/uL (0-1.3); Monocytes % (auto) 5.2 % (0.0-12.0); Neutrophils # (auto) 5.9 10 ^3/uL (1.6-8.6); Neutrophils % (auto) 83.1 % (37.0-80.0); Nucleated Red Blood Cells % 0.1 %; Red Blood Cells 3.92 10^6/uL (4.5-5.90); White Blood Cell 7.1 10^3/uL (4.4-10.8)
[2021-07-09 03:32] LABS: BUN/Creatinine Ratio 16.3; Calcium 8.3 mg/dL (8.5-10.1); Potassium 3.9 mmol/L (3.5-5.1)
[2021-07-09] MEDS: VANCOMYCIN 1GM/250ML 250 ML IV SCH (03:52)
[2021-07-09 04:30] VITALS: BP 140/89
[2021-07-09] MEDS: PRAMIPEXOLE DIHYDROCHLORIDE MO 0.25 MG TAB PO SCH ×3 (05:51→22:30)
[2021-07-09] MEDS: BUDESONIDE (INHALATION) 0.5 MG/2 ML NEB NEB SCH ×2 (06:15→19:22)
[2021-07-09] MEDS: ALBUTEROL SULF 2.5 MG/0.5ML(0.5%) NEB SOLN NEB SCH ×5 (06:15→23:43)
[2021-07-09] MEDS: IPRATROPIUM BROM 0.5 MG/2.5ML INH SOL NEB SCH ×5 (06:15→23:43)
[2021-07-09] MEDS: HYDROcodone-ACET 5/325MG TAB PO PRN ×2 (06:35→22:34)
[2021-07-09 09:00] VITALS: BP 140/81
[2021-07-09] MEDS: cefTRIAXone 1GM/50ML D5W 50 ML IV SCH (09:32)
[2021-07-09] MEDS: PANTOPRAZOLE 40 MG TAB PO SCH (09:33)
[2021-07-09] MEDS: ENOXAPARIN SOD 40 MG/0.4 ML SYRINGE SC SCH (09:33)
[2021-07-09] MEDS: dilTIAZem 120MG ER CAP PO SCH (09:33)
[2021-07-09] MEDS: GABAPENTIN 300 MG CAP PO SCH ×2 (09:33→22:29)
[2021-07-09] MEDS: ASPirin 81 mg TAB PO SCH (09:34)
[2021-07-09] MEDS: CLOPIDOGREL BISULFATE 75 MG TAB PO SCH (09:34)
[2021-07-09] MEDS: AZITHROMYCIN 250 MG TAB PO SCH (09:34)
[2021-07-09] MEDS: FOLIC ACID 1 MG TAB PO SCH (09:34)
[2021-07-09 13:00] VITALS: BP 135/75
[2021-07-09] MEDS ORDERED: DILT120C20 PO (13:08)
[2021-07-09] MEDS ORDERED: AMOX500T86 PO (13:08)
[2021-07-09 17:00] VITALS: BP 131/74
[2021-07-09 22:29] VITALS: BP 137/78
[2021-07-09] MEDS: traZODone HCL 50 MG TAB PO SCH (22:30)
[2021-07-09] MEDS: SENNA 8.6 MG TAB PO SCH (22:30)
[2021-07-09] MEDS: PRAVASTATIN SODIUM 20 MG TAB PO SCH (22:30)
[2021-07-10] VITALS (7 sets, daily range): BP systolic 115–139; BP diastolic 67–81
[2021-07-10] MEDS ORDERED: VANCOMYCIN 1GM/250ML 250 ML IV SCH (01:00)
[2021-07-10] MEDS: PRAMIPEXOLE DIHYDROCHLORIDE MO 0.25 MG TAB PO SCH ×2 (05:53→15:00)
[2021-07-10] MEDS: ALBUTEROL SULF 2.5 MG/0.5ML(0.5%) NEB SOLN NEB SCH ×2 (06:53→11:27)
[2021-07-10] MEDS: IPRATROPIUM BROM 0.5 MG/2.5ML INH SOL NEB SCH ×2 (06:53→11:27)
[2021-07-10] MEDS: BUDESONIDE (INHALATION) 0.5 MG/2 ML NEB NEB SCH (06:53)
[2021-07-10] MEDS: GABAPENTIN 300 MG CAP PO SCH (08:51)
[2021-07-10] MEDS: HYDROcodone-ACET 5/325MG TAB PO PRN (08:51)
[2021-07-10] MEDS: PANTOPRAZOLE 40 MG TAB PO SCH (08:52)
[2021-07-10] MEDS: dilTIAZem 120MG ER CAP PO SCH (08:52)
[2021-07-10] MEDS: CLOPIDOGREL BISULFATE 75 MG TAB PO SCH (08:52)
[2021-07-10] MEDS: FOLIC ACID 1 MG TAB PO SCH (08:52)
[2021-07-10] MEDS: ASPirin 81 mg TAB PO SCH (08:53)
[2021-07-10] MEDS: ENOXAPARIN SOD 40 MG/0.4 ML SYRINGE SC SCH (08:53)
[2021-07-10] MEDS: AZITHROMYCIN 250 MG TAB PO SCH (08:54)
[2021-07-10] MEDS: cefTRIAXone 1GM/50ML D5W 50 ML IV SCH (09:00)
== END 2021-07-10 18:28 | disposition home health service (06) | DRG 189 ==
LOC: EDBD 01:24 → EDUNIT# 01:24 → ER 01:24 → OVERFLOW 04:55 → ICU WEST 09:53 → TELE-CENTR 07-08 07:40
PROVIDERS: ADMIT Internal Medicine; ATTEND Hospitalist
PROC: 5A09357 Assistance with Respiratory Ventilation, Less than 24 Consecutive Hours, Continuous Positive Airway Pressure (ICD-10-PCS; principal; 2021-07-08)
PROC: B41GYZZ Fluoroscopy of Left Lower Extremity Arteries using Other Contrast (ICD-10-PCS; 2021-07-08)
PROC: B41FYZZ Fluoroscopy of Right Lower Extremity Arteries using Other Contrast (ICD-10-PCS; 2021-07-08)
PROC: B44HZZZ Ultrasonography of Bilateral Lower Extremity Arteries (ICD-10-PCS; 2021-07-08)
DX: J96.21 Acute and chronic respiratory failure with hypoxia (principal); I47.1 Supraventricular tachycardia; L03.116 Cellulitis of left lower limb; E87.2 Acidosis; J44.1 Chronic obstructive pulmonary disease with (acute) exacerbation; J98.11 Atelectasis; L03.115 Cellulitis of right lower limb; I87.2 Venous insufficiency (chronic) (peripheral); I25.10 Atherosclerotic heart disease of native coronary artery without angina pectoris; E78.5 Hyperlipidemia, unspecified; Z20.822 Contact with and (suspected) exposure to COVID-19; F17.210 Nicotine dependence, cigarettes, uncomplicated; F10.10 Alcohol abuse, uncomplicated; F41.9 Anxiety disorder, unspecified; I10 Essential (primary) hypertension; I73.9 Peripheral vascular disease, unspecified; Z96.642 Presence of left artificial hip joint; G89.29 Other chronic pain; K21.9 Gastro-esophageal reflux disease without esophagitis; M19.90 Unspecified osteoarthritis, unspecified site; R53.81 Other malaise; Z86.718 Personal history of other venous thrombosis and embolism; Z86.73 Personal history of transient ischemic attack (TIA), and cerebral infarction without residual deficits; I25.2 Old myocardial infarction; Z80.1 Family history of malignant neoplasm of trachea, bronchus and lung; Z99.81 Dependence on supplemental oxygen
CPT/HCPCS: 36415; 36600; 71045; 75716; 80048; 80053; 80202; 80307; 80320; 82565; 82805; 82962; 83605; 83735; 83880; 84443; 84484; 85025; 85610; 86141; 87040; 87081; 93005; 93306; 93925; 93970; 94640; 94660; 96361; 96365; 96367; 96368; 96372; 96375; 96376; 99152; 99153; 99291; C1887; G0378; J0153; J0696; J2001; J2250; J2405; J2543; Q9967

== ENCOUNTER 2021-08-08 06:47 | Day surgery (SDC) | payer OTHER ==
[2021-08-08] VITALS (7 sets, daily range): BP systolic 132–161; BP diastolic 73–96
[~2021-08-08] VITALS: Ht 167.6 cm; Wt 63.5 kg
[~2021-08-08 06:47] MED LIST changes: +BENZ100C97 PO; -CALC600T10 PO; -CLOP75TA28 PO; +DILT60TA PO; -FLU01T PO; +FLUD0.1T2 PO; -FOLI1TAB6 PO; +GABA300C10 PO; +HYDR-4902 PO; +LATA0.0019 EACHEYE; +MEGE40TA4 PO; +MONT10TA23 PO; +MUPI2OIN2 EX; +NITR0.4S29 SL; -POLY33504 PO; -ROPI1TAB4; +ROPI1TAB4 PO; +TIOT1AER IN; -TRAM50TA2 PO; -TRAZ100T3; +ZOLP5TAB PO
[2021-08-08] MEDS ORDERED: fentaNYL CITRATE 100 MCG/2 ML VL ONE (07:39)
[2021-08-08] MEDS ORDERED: ANGIOMAX 250 MG VIAL IV ONE (07:39)
[2021-08-08] MEDS ORDERED: NITROGLYCERIN 5MG/ML 10ML VIAL IV ONE (07:39)
[2021-08-08] MEDS ORDERED: SODIUM CHL 0.9% 0 ML ONE (07:40)
[2021-08-08] MEDS ORDERED: MIDAZOLAM HCL 2MG/2ML 2ml VIAL (1mg/ml) ONE (07:40)
[2021-08-08] MEDS ORDERED: VERAPAMIL 2.5MG/ML INJ 2ML VIAL IV ONE (07:45)
[2021-08-08] MEDS ORDERED: LIDOCAINE 2%HCL (LOCAL ANESTH.) INJ 20ML MDV ONE (07:48)
[2021-08-08] MEDS ORDERED: HEPARIN IN NS 1000Units/500mL 1,500 ML ONE (07:48)
[2021-08-08] MEDS ORDERED: IODIXANOL 320MG/ML 100ML BTL IV ONE (07:48)
[2021-08-08] MEDS ORDERED: HEPARIN SODIUM (PORCINE) 5000 UNITS/ML 1ML VIAL ONE ×3 (08:54→09:38)
== END 2021-08-08 12:20 | disposition home or self-care (01) ==
LOC: CATH 06:47
PROVIDERS: ATTEND Internal Medicine
DX: T82.856A Stenosis of peripheral vascular stent, initial encounter (principal); I73.9 Peripheral vascular disease, unspecified; G62.9 Polyneuropathy, unspecified; M19.90 Unspecified osteoarthritis, unspecified site; J44.9 Chronic obstructive pulmonary disease, unspecified; M81.0 Age-related osteoporosis without current pathological fracture; I95.1 Orthostatic hypotension; F41.9 Anxiety disorder, unspecified; F32.A Depression, unspecified; Z79.82 Long term (current) use of aspirin; Z95.818 Presence of other cardiac implants and grafts; Z98.890 Other specified postprocedural states; Z98.61 Coronary angioplasty status; Z79.899 Other long term (current) drug therapy; Z82.49 Family history of ischemic heart disease and other diseases of the circulatory system; Z20.822 Contact with and (suspected) exposure to COVID-19; Z80.1 Family history of malignant neoplasm of trachea, bronchus and lung; Z87.891 Personal history of nicotine dependence; Y92.89 Other specified places as the place of occurrence of the external cause; Y83.1 Surgical operation with implant of artificial internal device as the cause of abnormal reaction of the patient, or of later complication, without mention of misadventure at the time of the procedure
CPT/HCPCS: 37224; 75710; 93005; C1725; C1894; J1644; J2250; J3010; J3490; J7030; Q9967; U0003; 99152; 99153

== ENCOUNTER 2021-08-28 01:19 | Inpatient (IN) | payer OTHER ==
[~2021-08-28] VITALS: Ht 177.8 cm; Wt 63.5 kg
[2021-08-28 02:16] LABS: Basophils # (auto) 0 10 ^3/uL (0-0.2); Eosinophils # (auto) 0 10 ^3/uL (0-0.8); Mean Corpuscular Volume 87.5 fL (80.0-100.0); Nucleated Red Blood Cells % 0.1 %
[2021-08-28 02:18] LABS: Basophils % (auto) 0.4 % (0.0-2.0); Hematocrit 29.8 % (41.0-53.0); Hemoglobin 9.9 g/dL (13.5-17.5); Lymphocytes % (auto) 37.3 % (10.0-50.0); Mean Corpuscular Hemoglobin 29.3 pg (28.0-32.0); Mean Corpuscular Hgb Conc. 33.4 g/dL (32.0-36.0); Monocytes % (auto) 12.7 % (0.0-12.0); Neutrophils % (auto) 49.6 % (37.0-80.0)
[2021-08-28 02:31] LABS: Albumin 2.4 g/dL (3.4-5.0); Calcium 8.5 mg/dL (8.5-10.1); Potassium 3.3 mmol/L (3.5-5.1)
[2021-08-28 02:33] LABS: BUN/Creatinine Ratio 13.9; Bilirubin, Total 0.2 mg/dL (0.2-1.0)
[2021-08-28] MEDS ORDERED: ASPirin 325 MG TAB PO ONE (04:15)
[2021-08-28] MEDS ORDERED: ONDANSETRON HCL 4 MG/2 ML VIAL IV ONE ×2 (04:15→10:30)
[2021-08-28] MEDS ORDERED: MORPHINE SULFATE 4 MG/ML SYR/VIAL IV ONE ×2 (04:15→10:30)
[2021-08-28] MEDS ORDERED: ONDANSETRON HCL 4 MG/2 ML VIAL IV PRN (14:30)
[2021-08-28] MEDS ORDERED: MORPHINE SULFATE INJECTION 2 MG/ML SYRG IV PRN (14:30)
[2021-08-28] MEDS ORDERED: NITROGLYCERIN 0.4 MG SL TAB SL PRN (14:30)
[2021-08-28] MEDS ORDERED: cefTRIAXone 1GM/50ML D5W 50 ML IV ONE (14:30)
[2021-08-28] MEDS ORDERED: POTASSIUM CHL 10 Meq TABLET PO ONE (14:30)
[2021-08-28 17:00] VITALS: BP 140/69
[2021-08-28] MEDS: MORPHINE SULFATE INJECTION 2 MG/ML SYRG IV PRN (18:02)
[2021-08-28] MEDS: HYDROcodone-ACET 5/325MG TAB PO PRN (20:55)
[2021-08-28 22:00] VITALS: BP 139/68
[2021-08-29 05:00] VITALS: BP 156/80
[2021-08-29] MEDS: MORPHINE SULFATE INJECTION 2 MG/ML SYRG IV PRN (05:47)
[2021-08-29 06:28] LABS: Potassium 3.6 mmol/L (3.5-5.1)
[2021-08-29 06:36] LABS: Basophils # (auto) 0 10 ^3/uL (0-0.2); Basophils % (auto) 0.2 % (0.0-2.0); Eosinophils # (auto) 0 10 ^3/uL (0-0.8); Mean Corpuscular Hgb Conc. 33.5 g/dL (32.0-36.0); Monocytes # (auto) 0.8 10 ^3/uL (0-1.3); White Blood Cell 7.7 10^3/uL (4.4-10.8)
[2021-08-29 06:39] LABS: Hematocrit 33.3 % (41.0-53.0); Hemoglobin 11.2 g/dL (13.5-17.5); Lymphocytes # (auto) 2.5 10 ^3/uL (0.4-5.4); Lymphocytes % (auto) 32.1 % (10.0-50.0); Mean Corpuscular Hemoglobin 29.5 pg (28.0-32.0); Mean Corpuscular Volume 87.8 fL (80.0-100.0); Monocytes % (auto) 10.5 % (0.0-12.0); Neutrophils # (auto) 4.4 10 ^3/uL (1.6-8.6); Neutrophils % (auto) 57.2 % (37.0-80.0); Nucleated Red Blood Cells % 0.1 %; Red Blood Cells 3.79 10^6/uL (4.5-5.90)
[2021-08-29 06:41] LABS: Albumin 2.5 g/dL (3.4-5.0); BUN/Creatinine Ratio 10.7; Bilirubin, Total 0.5 mg/dL (0.2-1.0); Calcium 8.7 mg/dL (8.5-10.1); Total Protein 6.7 g/dL (6.4-8.2)
[2021-08-29] MEDS: cefTRIAXone 1GM/50ML D5W 50 ML IV SCH (08:43)
[2021-08-29 09:00] VITALS: BP 149/76
[2021-08-29] MEDS: POTASSIUM CHL 10 Meq TABLET PO SCH (09:40)
[2021-08-29] MEDS: FUROSEMIDE 40 MG/4 ML VIAL IV SCH (09:40)
[2021-08-29] MEDS: ENOXAPARIN SOD 40 MG/0.4 ML SYRINGE SC SCH (09:41)
[2021-08-29] MEDS: GABAPENTIN 300 MG CAP PO SCH ×2 (09:41→21:22)
[2021-08-29] MEDS: busPIRone HCL 10 MG TAB PO SCH (10:28)
[2021-08-29 13:00] VITALS: BP 119/67
[2021-08-29] MEDS: HYDROcodone-ACET 5/325MG TAB PO PRN ×2 (13:50→21:27)
[2021-08-29] MEDS: ROPINIROLE HYDROCHLORIDE 2 MG PO SCH ×2 (14:00→21:22)
[2021-08-29 17:00] VITALS: BP 100/67
[2021-08-29] MEDS: PRAVASTATIN SODIUM 20 MG TAB PO SCH (17:30)
[2021-08-29 22:00] VITALS: BP 117/72
[2021-08-30] VITALS (7 sets, daily range): BP systolic 110–147; BP diastolic 62–77
[2021-08-30] MEDS: HYDROcodone-ACET 5/325MG TAB PO PRN ×2 (05:48→16:28)
[2021-08-30] MEDS: ROPINIROLE HYDROCHLORIDE 2 MG PO SCH ×2 (05:48→16:10)
[2021-08-30] MEDS ORDERED: ADENOSINE 53 MG in GIVE UN-DILUTED 0 ML IV ONE (07:45)
[2021-08-30 07:51] LABS: Basophils # (auto) 0 10 ^3/uL (0-0.2); Eosinophils # (auto) 0 10 ^3/uL (0-0.8); Lymphocytes # (auto) 3.1 10 ^3/uL (0.4-5.4); Monocytes # (auto) 0.9 10 ^3/uL (0-1.3); Neutrophils # (auto) 3.1 10 ^3/uL (1.6-8.6); White Blood Cell 7.1 10^3/uL (4.4-10.8)
[2021-08-30 07:52] LABS: Basophils % (auto) 0.1 % (0.0-2.0); Hematocrit 35.3 % (41.0-53.0); Lymphocytes % (auto) 43.9 % (10.0-50.0); Mean Corpuscular Hemoglobin 29.6 pg (28.0-32.0); Mean Corpuscular Volume 87.2 fL (80.0-100.0); Monocytes % (auto) 12.8 % (0.0-12.0); Neutrophils % (auto) 43.2 % (37.0-80.0); Red Blood Cells 4.06 10^6/uL (4.5-5.90)
[2021-08-30 08:05] LABS: Potassium 3.8 mmol/L (3.5-5.1)
[2021-08-30] MEDS: FUROSEMIDE 40 MG/4 ML VIAL IV SCH (10:18)
[2021-08-30] MEDS: POTASSIUM CHL 10 Meq TABLET PO SCH (10:18)
[2021-08-30] MEDS: GABAPENTIN 300 MG CAP PO SCH (10:18)
[2021-08-30] MEDS: busPIRone HCL 10 MG TAB PO SCH (10:18)
[2021-08-30] MEDS: cefTRIAXone 1GM/50ML D5W 50 ML IV SCH (10:18)
[2021-08-30] MEDS: ENOXAPARIN SOD 40 MG/0.4 ML SYRINGE SC SCH (10:19)
[2021-08-30] MEDS ORDERED: ALBUTEROL SULF 2.5 MG/0.5ML(0.5%) NEB SOLN NEB PRN (12:45)
[2021-08-30] MEDS ORDERED: PANTOPRAZOLE 40 MG TAB PO SCH (12:45)
[2021-08-30] MEDS: PRAVASTATIN SODIUM 20 MG TAB PO SCH (18:27)
[2021-08-31] MEDS ORDERED: ASPirin 81 mg TAB PO SCH (10:00)
[2021-08-31] MEDS ORDERED: POTASSIUM CHL 10 Meq TABLET PO SCH (10:00)
[2021-08-31] MEDS ORDERED: FUROSEMIDE 20 MG TAB PO SCH (10:00)
== END 2021-08-30 20:10 | disposition still patient (30) | DRG 313 ==
LOC: EDBD 01:19 → ER 01:23 → TELE 14:27 → TELE-CENTR 16:50
PROVIDERS: ADMIT Registered Nurse; ATTEND Internal Medicine
DX: R07.9 Chest pain, unspecified (principal); E43 Unspecified severe protein-calorie malnutrition; L03.115 Cellulitis of right lower limb; J96.11 Chronic respiratory failure with hypoxia; I50.40 Unspecified combined systolic (congestive) and diastolic (congestive) heart failure; D63.8 Anemia in other chronic diseases classified elsewhere; E78.5 Hyperlipidemia, unspecified; F17.210 Nicotine dependence, cigarettes, uncomplicated; F32.A Depression, unspecified; G62.9 Polyneuropathy, unspecified; M19.90 Unspecified osteoarthritis, unspecified site; R54 Age-related physical debility; Z20.822 Contact with and (suspected) exposure to COVID-19; I11.0 Hypertensive heart disease with heart failure; I25.10 Atherosclerotic heart disease of native coronary artery without angina pectoris; I73.9 Peripheral vascular disease, unspecified; J44.9 Chronic obstructive pulmonary disease, unspecified; K21.9 Gastro-esophageal reflux disease without esophagitis; Z80.0 Family history of malignant neoplasm of digestive organs; Z80.1 Family history of malignant neoplasm of trachea, bronchus and lung; Z82.49 Family history of ischemic heart disease and other diseases of the circulatory system; Z86.73 Personal history of transient ischemic attack (TIA), and cerebral infarction without residual deficits; Z98.62 Peripheral vascular angioplasty status; Z99.81 Dependence on supplemental oxygen
CPT/HCPCS: 36415; 71045; 78452; 80048; 80053; 83735; 83880; 84100; 84484; 85025; 93005; 93017; 96365; 96375; 96376; G0378; J0153; J0696; J2405

== ENCOUNTER 2021-09-06 19:54 | Emergency (ER) | payer OTHER ==
[~2021-09-06] VITALS: Ht 170.2 cm; Wt 68.0 kg
[2021-09-06 20:08] VITALS: BP 176/94
[2021-09-06] MEDS ORDERED: ASPirin 81 mg TAB PO ONE (21:15)
[2021-09-06 22:07] LABS: Basophils # (auto) 0.1 10 ^3/uL (0-0.2); Basophils % (auto) 0.9 % (0.0-2.0); Eosinophils # (auto) 0 10 ^3/uL (0-0.8); Hematocrit 36.1 % (41.0-53.0); Hemoglobin 12.2 g/dL (13.5-17.5); Lymphocytes # (auto) 2.1 10 ^3/uL (0.4-5.4); Lymphocytes % (auto) 22.1 % (10.0-50.0); Mean Corpuscular Hemoglobin 29.6 pg (28.0-32.0); Mean Corpuscular Hgb Conc. 33.7 g/dL (32.0-36.0); Mean Corpuscular Volume 87.6 fL (80.0-100.0); Monocytes # (auto) 0.5 10 ^3/uL (0-1.3); Monocytes % (auto) 5.1 % (0.0-12.0); Neutrophils % (auto) 71.9 % (37.0-80.0); Red Blood Cells 4.12 10^6/uL (4.5-5.90); White Blood Cell 9.7 10^3/uL (4.4-10.8)
[2021-09-06 22:29] LABS: Albumin 3.4 g/dL (3.4-5.0); BUN/Creatinine Ratio 7.7; Potassium 3.9 mmol/L (3.5-5.1)
[2021-09-06 22:31] LABS: Bilirubin, Total 0.6 mg/dL (0.2-1.0); Total Protein 7.9 g/dL (6.4-8.2)
[2021-09-06] MEDS ORDERED: AZIT250T9 PO (22:44)
[2021-09-06] MEDS ORDERED: [UNRECOGNIZED DRUG - CODE] PO (22:44)
[2021-09-06] MEDS ORDERED: ALBU108A5 IN (22:44)
[2021-09-06] MEDS ORDERED: DexAMETHasone SOD PHOS 10MG/1ML VIAL INJ IM ONE (23:00)
[2021-09-06] MEDS ORDERED: AZITHROMYCIN 250 MG TAB PO ONE (23:00)
== END 2021-09-07 00:46 | disposition home or self-care (01) ==
LOC: ER 19:54 → EDBD 19:54 → ER 23:22
DX: J44.1 Chronic obstructive pulmonary disease with (acute) exacerbation (principal); I10 Essential (primary) hypertension; I25.10 Atherosclerotic heart disease of native coronary artery without angina pectoris; E78.5 Hyperlipidemia, unspecified; K21.9 Gastro-esophageal reflux disease without esophagitis; F17.210 Nicotine dependence, cigarettes, uncomplicated; Z86.73 Personal history of transient ischemic attack (TIA), and cerebral infarction without residual deficits
CPT/HCPCS: 36415; 71045; 80053; 84484; 85025; 93005; 96372; 99285; J1100

== ENCOUNTER 2022-01-17 12:08 | Inpatient (IN) | payer OTHER ==
[~2022-01-17] VITALS: Ht 165.1 cm; Wt 59.0 kg
[~2022-01-17 12:08] MED LIST changes: +ALBU108A5 IN; +AZIT250T9 PO; +[UNRECOGNIZED DRUG - CODE] PO
[2022-01-17 18:46] LABS: Basophils # (auto) 0 10 ^3/uL (0-0.2); Hemoglobin 12.2 g/dL (13.5-17.5); Lymphocytes # (auto) 3.2 10 ^3/uL (0.4-5.4); Mean Corpuscular Volume 79.1 fL (80.0-100.0)
[2022-01-17 18:48] LABS: Basophils % (auto) 0.5 % (0.0-2.0); Eosinophils # (auto) 0.2 10 ^3/uL (0-0.8); Eosinophils % (auto) 1.9 % (0.0-7.0); Hematocrit 38.7 % (41.0-53.0); Lymphocytes % (auto) 37.3 % (10.0-50.0); Mean Corpuscular Hemoglobin 24.9 pg (28.0-32.0); Mean Corpuscular Hgb Conc. 31.4 g/dL (32.0-36.0); Monocytes # (auto) 0.8 10 ^3/uL (0-1.3); Monocytes % (auto) 9.4 % (0.0-12.0); Neutrophils # (auto) 4.4 10 ^3/uL (1.6-8.6); Neutrophils % (auto) 50.9 % (37.0-80.0); Red Blood Cells 4.89 10^6/uL (4.5-5.90); Red Cell Distribution Width 17.1 % (11.8-14.3); White Blood Cell 8.6 10^3/uL (4.4-10.8)
[2022-01-17 19:11] LABS: Albumin 3.8 g/dL (3.4-5.0); Potassium 4.4 mmol/L (3.5-5.1)
[2022-01-17 19:16] LABS: BUN/Creatinine Ratio 13.7; Bilirubin, Total 0.2 mg/dL (0.2-1.0); Total Protein 7.7 g/dL (6.4-8.2)
[2022-01-17] MEDS ORDERED: amLODIPine BESYLATE 5 MG TAB PO ONE (22:00)
[2022-01-18 00:26] LABS: INR 0.97 (0.9-1.15)
[2022-01-18] MEDS ORDERED: ACETAMINOPHEN 325 MG TAB PO PRN (05:45)
[2022-01-18] MEDS ORDERED: ONDANSETRON HCL 4 MG/2 ML VIAL IV PRN (05:45)
[2022-01-18] MEDS ORDERED: LORazepam 2MG/ML-1ML VIAL IV PRN (09:45)
[2022-01-18] MEDS ORDERED: GABAPENTIN 300 MG CAP PO SCH (10:00)
[2022-01-18] MEDS ORDERED: PANTOPRAZOLE 40 MG TAB PO SCH (10:00)
[2022-01-18] MEDS ORDERED: TRIAMTERENE/HCTZ 75/50MG TABLET PO SCH (10:00)
[2022-01-18] MEDS ORDERED: ENOXAPARIN SOD 40 MG/0.4 ML SYRINGE SC SCH (10:00)
[2022-01-18] MEDS ORDERED: ASPirin 81 mg TAB PO SCH (10:00)
[2022-01-18 11:35] LABS: Cholesterol 134 mg/dL (< 200); HDL Cholesterol 62 mg/dL (40-59); LDL Cholesterol 72 mg/dL (< 100); Triglycerides 54 mg/dL (< 150)
[2022-01-18] MEDS ORDERED: APIX5TAB PO (16:45)
[2022-01-18 19:45] VITALS: BP 113/73
[2022-01-18] MEDS ORDERED: MONTELUKAST SODIUM 10 MG TAB PO SCH (22:00)
[2022-01-18] MEDS ORDERED: ATORVASTATIN 20 MG TAB PO SCH (22:00)
== END 2022-01-18 20:11 | disposition home health service (06) | DRG 103 ==
LOC: ER 12:08 → OVERFLOW 01-18 05:37
PROVIDERS: ADMIT Nurse Practitioner; ATTEND Internal Medicine
DX: R51.9 Headache, unspecified (principal); I48.0 Paroxysmal atrial fibrillation; E78.5 Hyperlipidemia, unspecified; Z20.822 Contact with and (suspected) exposure to COVID-19; G62.9 Polyneuropathy, unspecified; G89.29 Other chronic pain; I73.9 Peripheral vascular disease, unspecified; I10 Essential (primary) hypertension; I25.10 Atherosclerotic heart disease of native coronary artery without angina pectoris; J44.9 Chronic obstructive pulmonary disease, unspecified; Z79.82 Long term (current) use of aspirin; Z79.899 Other long term (current) drug therapy; Z80.0 Family history of malignant neoplasm of digestive organs; Z80.1 Family history of malignant neoplasm of trachea, bronchus and lung; Z82.49 Family history of ischemic heart disease and other diseases of the circulatory system; Z72.0 Tobacco use; K21.9 Gastro-esophageal reflux disease without esophagitis
CPT/HCPCS: 36415; 70450; 70551; 71045; 80053; 80061; 84484; 85025; 85610; 93306; 93886; 96374; G0378

== ENCOUNTER 2022-01-30 22:33 | Inpatient (IN) | payer OTHER ==
[~2022-01-30] VITALS: Ht 165.1 cm; Wt 62.2 kg
[~2022-01-30 22:33] MED LIST changes: +APIX5TAB PO; -AZIT250T9 PO; -BENZ100C97 PO; -MUPI2OIN2 EX; -[UNRECOGNIZED DRUG - CODE] PO
[2022-01-30 23:41] LABS: Basophils # (auto) 0 10 ^3/uL (0-0.2); Basophils % (auto) 0.4 % (0.0-2.0); Eosinophils # (auto) 0.1 10 ^3/uL (0-0.8); Nucleated Red Blood Cells % 0.1 %
[2022-01-30 23:44] LABS: Eosinophils % (auto) 1.1 % (0.0-7.0); Hematocrit 34.6 % (41.0-53.0); Lymphocytes # (auto) 2.9 10 ^3/uL (0.4-5.4); Lymphocytes % (auto) 29.3 % (10.0-50.0); Mean Corpuscular Hemoglobin 24.6 pg (28.0-32.0); Mean Corpuscular Hgb Conc. 31.8 g/dL (32.0-36.0); Mean Corpuscular Volume 77.2 fL (80.0-100.0); Monocytes # (auto) 0.8 10 ^3/uL (0-1.3); Monocytes % (auto) 8.1 % (0.0-12.0); Neutrophils # (auto) 6.1 10 ^3/uL (1.6-8.6); Neutrophils % (auto) 61.1 % (37.0-80.0); Red Blood Cells 4.48 10^6/uL (4.5-5.90); Red Cell Distribution Width 17.8 % (11.8-14.3)
[2022-01-30 23:58] LABS: INR 1.1 (0.9-1.15); Partial Thromboplastin Time 30.5 sec (24.6-33.4)
[2022-01-30 23:59] LABS: BUN/Creatinine Ratio 13.2; Calcium 8.6 mg/dL (8.5-10.1); Magnesium 2.3 mg/dL (1.6-2.6); Potassium 3.7 mmol/L (3.5-5.1)
[2022-01-31 00:04] LABS: Bilirubin, Total 0.2 mg/dL (0.2-1.0); Total Protein 6.7 g/dL (6.4-8.2)
[2022-01-31] MEDS ORDERED: MORPHINE SULFATE INJ 2 MG/ml SYRG IV PRN (06:45)
[2022-01-31] MEDS ORDERED: ONDANSETRON HCL 4 MG/2 ML VIAL IV PRN (06:45)
[2022-01-31] MEDS ORDERED: NITROGLYCERIN 0.4 MG SL TAB SL PRN (06:45)
[2022-01-31] MEDS ORDERED: ACETAMINOPHEN 325 MG TAB PO PRN (06:45)
[2022-01-31] MEDS ORDERED: ALBUTEROL SULF 2.5 MG/0.5ML(0.5%) NEB SOLN NEB PRN (06:45)
[2022-01-31] MEDS: TRIAMTERENE/HCTZ 75/50MG TABLET PO SCH (10:00)
[2022-01-31] MEDS: ASPirin 81 mg TAB PO SCH (10:19)
[2022-01-31] MEDS: APIXABAN 5 MG TAB PO SCH ×2 (10:19→21:39)
[2022-01-31] MEDS: CLOPIDOGREL BISULFATE 75 MG TAB PO SCH (10:19)
[2022-01-31] MEDS: PANTOPRAZOLE 40 MG TAB PO SCH (10:19)
[2022-01-31 18:20] VITALS: BP 124/65
[2022-01-31] MEDS ORDERED: DULO60CA PO (19:36)
[2022-01-31] MEDS ORDERED: ALEN70TA74 PO (19:36)
[2022-01-31] MEDS ORDERED: CLOP75TA70 PO (19:36)
[2022-01-31 20:17] LABS: Urine Bacteria NONE SEEN /hpf (None Seen); Urine Blood Negative /uL (Negative); Urine Mucus FEW (None Seen); Urine Specific Gravity 1.025 (1.001-1.035); Urine WBC <1 /hpf (0 - 3)
[2022-01-31] MEDS: MONTELUKAST SODIUM 10 MG TAB PO SCH (21:39)
[2022-01-31] MEDS: ATORVASTATIN 20 MG TAB PO SCH (21:40)
[2022-01-31 22:00] VITALS: BP 126/71
[2022-01-31] MEDS: GABAPENTIN 300 MG CAP PO SCH (22:53)
[2022-01-31] MEDS: HYDROcodone-ACET 5/325MG TAB PO PRN (22:56)
[2022-02-01 05:00] VITALS: BP 126/70
[2022-02-01 05:38] LABS: Basophils # (auto) 0 10 ^3/uL (0-0.2); Hemoglobin 10.9 g/dL (13.5-17.5); Monocytes # (auto) 0.6 10 ^3/uL (0-1.3); Red Cell Distribution Width 17.8 % (11.8-14.3)
[2022-02-01 05:40] LABS: Basophils % (auto) 0.2 % (0.0-2.0); Eosinophils # (auto) 0.1 10 ^3/uL (0-0.8); Eosinophils % (auto) 1.3 % (0.0-7.0); Hematocrit 33.1 % (41.0-53.0); Lymphocytes # (auto) 3.2 10 ^3/uL (0.4-5.4); Lymphocytes % (auto) 32.1 % (10.0-50.0); Mean Corpuscular Hemoglobin 25.5 pg (28.0-32.0); Mean Corpuscular Hgb Conc. 32.9 g/dL (32.0-36.0); Mean Corpuscular Volume 77.6 fL (80.0-100.0); Monocytes % (auto) 6.4 % (0.0-12.0); Nucleated Red Blood Cells % 0.1 %; Red Blood Cells 4.26 10^6/uL (4.5-5.90); White Blood Cell 9.9 10^3/uL (4.4-10.8)
[2022-02-01 05:52] LABS: Calcium 8.8 mg/dL (8.5-10.1); Potassium 4.6 mmol/L (3.5-5.1)
[2022-02-01] MEDS: ROPINIROLE 1 MG PO SCH ×4 (07:41→22:00)
[2022-02-01 08:00] VITALS: BP 104/68
[2022-02-01 09:00] VITALS: BP 104/68
[2022-02-01] MEDS: GABAPENTIN 300 MG CAP PO SCH ×2 (10:13→22:02)
[2022-02-01] MEDS: ASPirin 81 mg TAB PO SCH (10:13)
[2022-02-01] MEDS: PANTOPRAZOLE 40 MG TAB PO SCH (10:13)
[2022-02-01] MEDS: APIXABAN 5 MG TAB PO SCH ×2 (10:13→22:01)
[2022-02-01] MEDS: CLOPIDOGREL BISULFATE 75 MG TAB PO SCH (10:13)
[2022-02-01] MEDS: TRIAMTERENE/HCTZ 75/50MG TABLET PO SCH (10:14)
[2022-02-01] MEDS: HYDROcodone-ACET 5/325MG TAB PO PRN ×2 (10:15→20:38)
[2022-02-01 12:44] VITALS: BP 118/65
[2022-02-01 17:00] VITALS: BP 117/73
[2022-02-01 22:00] VITALS: BP 119/61
[2022-02-01] MEDS: ATORVASTATIN 20 MG TAB PO SCH (22:02)
[2022-02-01] MEDS: MONTELUKAST SODIUM 10 MG TAB PO SCH (22:02)
[2022-02-02 05:00] VITALS: BP 127/73
[2022-02-02] MEDS: ROPINIROLE 1 MG PO SCH ×2 (06:00→18:46)
[2022-02-02] MEDS: PANTOPRAZOLE 40 MG TAB PO SCH (09:50)
[2022-02-02] MEDS: TRIAMTERENE/HCTZ 75/50MG TABLET PO SCH (09:51)
[2022-02-02] MEDS: HYDROcodone-ACET 5/325MG TAB PO PRN (09:51)
[2022-02-02] MEDS: GABAPENTIN 300 MG CAP PO SCH (09:51)
[2022-02-02] MEDS: ASPirin 81 mg TAB PO SCH (09:52)
[2022-02-02] MEDS: CLOPIDOGREL BISULFATE 75 MG TAB PO SCH (09:52)
[2022-02-02] MEDS: APIXABAN 5 MG TAB PO SCH (09:52)
[2022-02-02 12:37] VITALS: BP 111/71
[2022-02-02 16:29] VITALS: BP 121/74
== END 2022-02-02 19:55 | disposition home or self-care (01) | DRG 313 ==
LOC: EDBD 22:33 → ER 22:39 → TELE 01-31 06:35 → TELE-CENTR 01-31 16:58
PROVIDERS: ADMIT Nurse Practitioner; ATTEND Hospitalist
DX: R07.9 Chest pain, unspecified (principal); I25.110 Atherosclerotic heart disease of native coronary artery with unstable angina pectoris; Z20.822 Contact with and (suspected) exposure to COVID-19; E78.5 Hyperlipidemia, unspecified; F17.210 Nicotine dependence, cigarettes, uncomplicated; I11.0 Hypertensive heart disease with heart failure; I48.91 Unspecified atrial fibrillation; I50.9 Heart failure, unspecified; E66.9 Obesity, unspecified; I73.9 Peripheral vascular disease, unspecified; J44.9 Chronic obstructive pulmonary disease, unspecified; Z80.0 Family history of malignant neoplasm of digestive organs; Z80.1 Family history of malignant neoplasm of trachea, bronchus and lung; Z82.49 Family history of ischemic heart disease and other diseases of the circulatory system; Z86.73 Personal history of transient ischemic attack (TIA), and cerebral infarction without residual deficits; Z98.61 Coronary angioplasty status; Z98.62 Peripheral vascular angioplasty status; Z68.22 Body mass index [BMI] 22.0-22.9, adult
CPT/HCPCS: 36415; 71045; 80048; 80053; 81001; 83735; 83880; 84484; 85025; 85610; 85730; 87426; 93005; G0378; J2405

== ENCOUNTER 2022-05-22 22:29 | Inpatient (IN) | payer OTHER ==
[~2022-05-22] VITALS: Ht 172.7 cm; Wt 59.3 kg
[~2022-05-22 22:29] MED LIST changes: +ALEN70TA74 PO; +CLOP75TA70 PO; +DULO60CA PO
[2022-05-22] MEDS ORDERED: ALBUTEROL MEDNEB 2.5 mg/3ml NEB ONE (23:00)
[2022-05-22] MEDS ORDERED: CEFTRIAXONE SODIUM 2 GM in D5W 5% 50 ML IV ONE (23:00)
[2022-05-22] MEDS ORDERED: IPRATROPIUM BROM 0.5 MG/2.5ML INH SOL NEB ONE (23:00)
[2022-05-22] MEDS ORDERED: methylPREDNISolone SOD SUCC 125 MG/2 ML VL IV ONE (23:00)
[2022-05-22] MEDS ORDERED: ALBUTEROL SULF 2.5 MG/0.5ML(0.5%) NEB SOLN NEB ONE (23:00)
[2022-05-22] MEDS ORDERED: cefTRIAXone 1GM/50ML D5W 0 ML IV ONE (23:19)
[2022-05-22] MEDS ORDERED: cefTRIAXone SOD 1,000 MG VL ONE ×2 (23:20→23:21)
[2022-05-22 23:51] LABS: Basophils # (auto) 0 10 ^3/uL (0-0.2); Basophils % (auto) 0.1 % (0.0-2.0); Eosinophils # (auto) 0 10 ^3/uL (0-0.8); Eosinophils % (auto) 0.6 % (0.0-7.0); Hematocrit 34.8 % (41.0-53.0); Hemoglobin 10.9 g/dL (13.5-17.5); Lymphocytes # (auto) 1.3 10 ^3/uL (0.4-5.4); Lymphocytes % (auto) 15.5 % (10.0-50.0); Mean Corpuscular Hemoglobin 24.3 pg (28.0-32.0); Mean Corpuscular Hgb Conc. 31.2 g/dL (32.0-36.0); Mean Corpuscular Volume 77.9 fL (80.0-100.0); Monocytes # (auto) 0.7 10 ^3/uL (0-1.3); Monocytes % (auto) 8.7 % (0.0-12.0); Neutrophils # (auto) 6.3 10 ^3/uL (1.6-8.6); Neutrophils % (auto) 75.1 % (37.0-80.0); Nucleated Red Blood Cells % 0.2 %; Red Blood Cells 4.47 10^6/uL (4.5-5.90); Red Cell Distribution Width 17.7 % (11.8-14.3); White Blood Cell 8.4 10^3/uL (4.4-10.8)
[2022-05-22 23:53] LABS: Albumin 2.7 g/dL (3.4-5.0); Magnesium 2.1 mg/dL (1.6-2.6); Potassium 4.3 mmol/L (3.5-5.1)
[2022-05-22 23:56] LABS: BUN/Creatinine Ratio 28.9
[2022-05-22 23:59] LABS: Bilirubin, Total 0.5 mg/dL (0.2-1.0); Total Protein 7.1 g/dL (6.4-8.2)
[2022-05-23 00:06] LABS: INR 1.12 (0.9-1.15); Partial Thromboplastin Time 34.6 sec (24.6-33.4)
[2022-05-23] MEDS ORDERED: IOHEXOL 350 MG/ML 100ML IJ ONE (10:04)
[2022-05-23] MEDS ORDERED: SODIUM CHLORIDE 0.9% 1,000 ML IV ONE (10:15)
[2022-05-23] MEDS ORDERED: MORPHINE SULFATE INJ 2 MG/ml SYRG IV PRN (10:15)
[2022-05-23] MEDS ORDERED: IPRATROPIUM BROM 0.5 MG/2.5ML INH SOL NEB PRN (10:15)
[2022-05-23] MEDS ORDERED: REMDESIVIR PER PHARMACY 0 ML IV SCH (10:15)
[2022-05-23] MEDS ORDERED: ACETAMINOPHEN 325 MG TAB PO PRN (10:15)
[2022-05-23] MEDS ORDERED: NITROGLYCERIN 0.4 MG SL TAB SL PRN (10:15)
[2022-05-23 11:01] LABS: Urine Bacteria NONE SEEN /hpf (None Seen); Urine Blood Negative /uL (Negative); Urine Hyaline Cast FEW /lpf (0 - 2); Urine Specific Gravity 1.029 (1.001-1.035); Urine WBC 2 /hpf (0 - 3)
[2022-05-23] MEDS: SODIUM CHLORIDE 0.9% 1,000 ML IV SCH ×2 (11:12→18:15)
[2022-05-23] MEDS: cefTRIAXone 1GM/50ML D5W 50 ML IV SCH (11:14)
[2022-05-23 11:41] LABS: Basophils # (auto) 0 10 ^3/uL (0-0.2); Eosinophils # (auto) 0 10 ^3/uL (0-0.8); Lymphocytes # (auto) 0.8 10 ^3/uL (0.4-5.4); Monocytes # (auto) 0.3 10 ^3/uL (0-1.3); Nucleated Red Blood Cells % 0.2 %; White Blood Cell 8.7 10^3/uL (4.4-10.8)
[2022-05-23 11:43] LABS: Hematocrit 36.3 % (41.0-53.0); Hemoglobin 11.5 g/dL (13.5-17.5); Lymphocytes % (auto) 9.2 % (10.0-50.0); Mean Corpuscular Hemoglobin 24.8 pg (28.0-32.0); Mean Corpuscular Hgb Conc. 31.7 g/dL (32.0-36.0); Monocytes % (auto) 2.9 % (0.0-12.0); Neutrophils # (auto) 7.7 10 ^3/uL (1.6-8.6); Neutrophils % (auto) 87.9 % (37.0-80.0); Red Blood Cells 4.65 10^6/uL (4.5-5.90); Red Cell Distribution Width 17.8 % (11.8-14.3)
[2022-05-23 11:57] LABS: Alanine Aminotransferase 19 U/L (16-61); Albumin 2.5 g/dL (3.4-5.0); Anion Gap 10 (5-15); Aspartate Aminotransferase 34 U/L (15-37); BUN/Creatinine Ratio 24.7; Blood Urea Nitrogen 18 mg/dL (7-18); Calcium 8.7 mg/dL (8.5-10.1); Carbon Dioxide 27 mmol/L (21-32); Chloride 100 mmol/L (98-107); GFR African American 135 mL/min; GFR Non-African American 111 mL/min; Glucose 135 mg/dL (74-106); Magnesium 2.2 mg/dL (1.6-2.6); Potassium 4.3 mmol/L (3.5-5.1); Sodium 137 mmol/L (136-145)
[2022-05-23] MEDS ORDERED: IPRATROPIUM BROM 0.5 MG/2.5ML INH SOL NEB SCH (12:00)
[2022-05-23] MEDS ORDERED: AZITHROMYCIN 500MG/ 250ML 250 ML IV SCH (12:00)
[2022-05-23 12:13] LABS: Thyroid Stimulating Hormone 0.27 uIU/mL (0.358-3.74)
[2022-05-23 12:28] LABS: Alkaline Phosphatase 94 U/L (45-117); Bilirubin, Total 0.6 mg/dL (0.2-1.0)
[2022-05-23 12:31] LABS: CRP High Sensitivity > 19 mg/dL (< 0.3)
[2022-05-23 13:18] VITALS: BP 124/97
[2022-05-23] MEDS: ROPINIROLE 2 MG PO SCH ×2 (14:00→21:52)
[2022-05-23] MEDS: DOCUSATE SOD 100 MG CAP PO SCH ×2 (14:51→21:52)
[2022-05-23] MEDS ORDERED: REMDESIVIR 200 MG in NS 210ml LOADING DOSE ADULT IV ONE (15:00)
[2022-05-23] MEDS: DOXYCYCLINE 100 MG TAB/CAP PO SCH (21:51)
[2022-05-23] MEDS: GABAPENTIN 300 MG CAP PO SCH (21:51)
[2022-05-23] MEDS: HYDROcodone-ACET 5/325MG TAB PO PRN (21:52)
[2022-05-23] MEDS: ENOXAPARIN SOD 40 MG/0.4 ML SYRINGE SC SCH ×2 (21:52→22:00)
[2022-05-23] MEDS: BUDESONIDE (INHALATION) 180 MCG IH IN SCH (22:34)
[2022-05-24] MEDS: SODIUM CHLORIDE 0.9% 1,000 ML IV SCH ×3 (03:02→20:16)
[2022-05-24] MEDS: ROPINIROLE 2 MG PO SCH ×3 (06:00→22:33)
[2022-05-24] MEDS: DOCUSATE SOD 100 MG CAP PO SCH ×3 (06:00→22:00)
[2022-05-24 07:09] LABS: Basophils # (auto) 0 10 ^3/uL (0-0.2); Basophils % (auto) 0.1 % (0.0-2.0); Eosinophils # (auto) 0 10 ^3/uL (0-0.8); Hematocrit 40.7 % (41.0-53.0); Hemoglobin 12.3 g/dL (13.5-17.5); Lymphocytes # (auto) 1.1 10 ^3/uL (0.4-5.4); Lymphocytes % (auto) 9.1 % (10.0-50.0); Mean Corpuscular Hemoglobin 24.2 pg (28.0-32.0); Mean Corpuscular Hgb Conc. 30.2 g/dL (32.0-36.0); Mean Corpuscular Volume 80.2 fL (80.0-100.0); Monocytes # (auto) 0.6 10 ^3/uL (0-1.3); Neutrophils # (auto) 10.6 10 ^3/uL (1.6-8.6); Neutrophils % (auto) 85.8 % (37.0-80.0); Nucleated Red Blood Cells % 0.2 %; Red Blood Cells 5.07 10^6/uL (4.5-5.90); White Blood Cell 12.4 10^3/uL (4.4-10.8)
[2022-05-24] MEDS: cefTRIAXone 1GM/50ML D5W 50 ML IV SCH (08:56)
[2022-05-24 09:43] LABS: Albumin 2.3 g/dL (3.4-5.0); Calcium 7.8 mg/dL (8.5-10.1); Potassium 4.2 mmol/L (3.5-5.1)
[2022-05-24 09:46] LABS: BUN/Creatinine Ratio 30.5; Bilirubin, Total 0.3 mg/dL (0.2-1.0); Total Protein 7.3 g/dL (6.4-8.2)
[2022-05-24] MEDS: MONTELUKAST SODIUM 10 MG TAB PO SCH (10:00)
[2022-05-24] MEDS: dilTIAZem HCL 60 MG TAB PO SCH (10:00)
[2022-05-24] MEDS: GABAPENTIN 300 MG CAP PO SCH ×2 (10:00→23:01)
[2022-05-24] MEDS: ZINC SULFATE 220mg CAP or TAB PO SCH (10:00)
[2022-05-24] MEDS: PANTOPRAZOLE 40 MG/10 ML VIAL INJ IV SCH (10:00)
[2022-05-24] MEDS: DOXYCYCLINE 100 MG TAB/CAP PO SCH ×2 (10:00→23:01)
[2022-05-24] MEDS: ASCORBIC ACID 1,000 MG TAB PO SCH (10:00)
[2022-05-24] MEDS: MEGESTROL ACETATE 20 MG TAB PO SCH (10:00)
[2022-05-24] MEDS: ASPirin 81 mg TAB PO SCH (10:00)
[2022-05-24] MEDS: ENOXAPARIN SOD 40 MG/0.4 ML SYRINGE SC SCH (10:00)
[2022-05-24] MEDS: DULoxetine HCL 30 MG CAP PO SCH (10:00)
[2022-05-24] MEDS: CHOLECALCIFEROL (VITD3) 2,000 UNIT CAP/TAB PO SCH (10:00)
[2022-05-24] MEDS: NICOTINE 7MG/24HR TOPICAL PATCH TD SCH (10:00)
[2022-05-24] MEDS: ALBUTEROL SULF HFA 90MCG INH 200DOSE IN PRN ×2 (10:28→23:16)
[2022-05-24] MEDS: BUDESONIDE (INHALATION) 180 MCG IH IN SCH ×2 (10:28→18:37)
[2022-05-24] MEDS: DexAMETHasone SOD PHOS 10MG/1ML VIAL INJ IV SCH (11:07)
[2022-05-24] MEDS: REMDESIVIR 100mg 100 MG in SODIUM CHL 0.9% 230 ML IV SCH (15:09)
[2022-05-24 19:41] VITALS: BP 149/111
[2022-05-24 20:00] VITALS: BP 104/68
[2022-05-24 22:00] VITALS: BP 148/88
[2022-05-24] MEDS: APIXABAN 5 MG TAB PO SCH (23:01)
[2022-05-24] MEDS: HYDROcodone-ACET 5/325MG TAB PO PRN (23:14)
[2022-05-25] MEDS: SODIUM CHLORIDE 0.9% 1,000 ML IV SCH ×3 (02:51→15:45)
[2022-05-25] MEDS: MORPHINE SULFATE INJ 2 MG/ml SYRG IV PRN ×2 (05:11→22:31)
[2022-05-25 05:22] VITALS: BP 140/94
[2022-05-25] MEDS: ROPINIROLE 2 MG PO SCH ×3 (05:39→22:30)
[2022-05-25] MEDS: DOCUSATE SOD 100 MG CAP PO SCH ×3 (05:40→22:30)
[2022-05-25 09:09] VITALS: BP 130/76
[2022-05-25] MEDS: ASCORBIC ACID 1,000 MG TAB PO SCH (09:39)
[2022-05-25] MEDS: cefTRIAXone 1GM/50ML D5W 50 ML IV SCH (09:39)
[2022-05-25] MEDS: DOXYCYCLINE 100 MG TAB/CAP PO SCH ×2 (09:40→22:30)
[2022-05-25] MEDS: CHOLECALCIFEROL (VITD3) 2,000 UNIT CAP/TAB PO SCH (09:40)
[2022-05-25] MEDS: GABAPENTIN 300 MG CAP PO SCH ×2 (09:40→22:30)
[2022-05-25] MEDS: ASPirin 81 mg TAB PO SCH (09:41)
[2022-05-25] MEDS: MEGESTROL ACETATE 20 MG TAB PO SCH (09:42)
[2022-05-25] MEDS: DULoxetine HCL 30 MG CAP PO SCH (09:44)
[2022-05-25] MEDS: APIXABAN 5 MG TAB PO SCH ×2 (09:44→22:30)
[2022-05-25] MEDS: ZINC SULFATE 220mg CAP or TAB PO SCH (09:45)
[2022-05-25] MEDS: dilTIAZem HCL 60 MG TAB PO SCH (09:46)
[2022-05-25] MEDS: PANTOPRAZOLE 40 MG/10 ML VIAL INJ IV SCH (09:47)
[2022-05-25] MEDS: DexAMETHasone SOD PHOS 10MG/1ML VIAL INJ IV SCH (09:50)
[2022-05-25] MEDS: NICOTINE 7MG/24HR TOPICAL PATCH TD SCH (09:51)
[2022-05-25] MEDS: MONTELUKAST SODIUM 10 MG TAB PO SCH (09:51)
[2022-05-25] MEDS: BUDESONIDE (INHALATION) 180 MCG IH IN SCH ×2 (10:00→20:30)
[2022-05-25] MEDS: HYDROcodone-ACET 5/325MG TAB PO PRN (10:26)
[2022-05-25 12:20] LABS: Albumin 2.3 g/dL (3.4-5.0); BUN/Creatinine Ratio 23.8; Calcium 8.3 mg/dL (8.5-10.1); Potassium 4.1 mmol/L (3.5-5.1)
[2022-05-25 12:23] LABS: Bilirubin, Total 0.7 mg/dL (0.2-1.0); Total Protein 7.2 g/dL (6.4-8.2)
[2022-05-25 12:53] VITALS: BP 137/89
[2022-05-25] MEDS: REMDESIVIR 100mg 100 MG in SODIUM CHL 0.9% 230 ML IV SCH (14:45)
[2022-05-25 16:34] VITALS: BP 121/77
[2022-05-25] MEDS: ALBUTEROL SULF HFA 90MCG INH 200DOSE IN SCH (20:32)
[2022-05-25 22:00] VITALS: BP 143/81
[2022-05-26] MEDS: MELATONIN 5 MG TAB PO PRN ×2 (01:37→23:15)
[2022-05-26 04:41] VITALS: BP 139/77
[2022-05-26] MEDS: SODIUM CHLORIDE 0.9% 1,000 ML IV SCH ×2 (05:05→18:25)
[2022-05-26] MEDS: MORPHINE SULFATE INJ 2 MG/ml SYRG IV PRN ×2 (05:31→22:03)
[2022-05-26 05:37] LABS: Alanine Aminotransferase 53 U/L (16-61); Albumin 2.5 g/dL (3.4-5.0); Anion Gap 11 (5-15); Aspartate Aminotransferase 107 U/L (15-37); Blood Urea Nitrogen 21 mg/dL (7-18); Calcium 8.2 mg/dL (8.5-10.1); Carbon Dioxide 23 mmol/L (21-32); Chloride 110 mmol/L (98-107); GFR African American 141 mL/min; GFR Non-African American 117 mL/min; Glucose 119 mg/dL (74-106); Potassium 4.1 mmol/L (3.5-5.1); Sodium 144 mmol/L (136-145)
[2022-05-26 05:40] LABS: Alkaline Phosphatase 108 U/L (45-117); Bilirubin, Total 0.7 mg/dL (0.2-1.0); Total Protein 6.9 g/dL (6.4-8.2)
[2022-05-26 05:41] LABS: Basophils # (auto) 0 10 ^3/uL (0-0.2); Eosinophils # (auto) 0 10 ^3/uL (0-0.8); Monocytes # (auto) 1.1 10 ^3/uL (0-1.3); Monocytes % (auto) 6.8 % (0.0-12.0); Neutrophils # (auto) 13.8 10 ^3/uL (1.6-8.6)
[2022-05-26 05:43] LABS: Hematocrit 37.8 % (41.0-53.0); Hemoglobin 11.9 g/dL (13.5-17.5); Lymphocytes # (auto) 1.6 10 ^3/uL (0.4-5.4); Lymphocytes % (auto) 9.7 % (10.0-50.0); Mean Corpuscular Hemoglobin 24.7 pg (28.0-32.0); Mean Corpuscular Hgb Conc. 31.4 g/dL (32.0-36.0); Mean Corpuscular Volume 78.7 fL (80.0-100.0); Neutrophils % (auto) 83.5 % (37.0-80.0); White Blood Cell 16.5 10^3/uL (4.4-10.8)
[2022-05-26] MEDS: ROPINIROLE 2 MG PO SCH ×2 (06:56→14:00)
[2022-05-26] MEDS: DOCUSATE SOD 100 MG CAP PO SCH ×3 (06:56→22:02)
[2022-05-26 09:00] VITALS: BP 132/71
[2022-05-26] MEDS: NICOTINE 7MG/24HR TOPICAL PATCH TD SCH (10:00)
[2022-05-26] MEDS: HYDROcodone-ACET 5/325MG TAB PO PRN ×3 (10:40→23:15)
[2022-05-26] MEDS: ASCORBIC ACID 1,000 MG TAB PO SCH (10:40)
[2022-05-26] MEDS: GABAPENTIN 300 MG CAP PO SCH ×2 (10:40→22:02)
[2022-05-26] MEDS: DOXYCYCLINE 100 MG TAB/CAP PO SCH ×2 (10:41→22:02)
[2022-05-26] MEDS: CHOLECALCIFEROL (VITD3) 2,000 UNIT CAP/TAB PO SCH (10:41)
[2022-05-26] MEDS: MEGESTROL ACETATE 20 MG TAB PO SCH (10:42)
[2022-05-26] MEDS: APIXABAN 5 MG TAB PO SCH ×2 (10:43→22:02)
[2022-05-26] MEDS: DULoxetine HCL 30 MG CAP PO SCH (10:44)
[2022-05-26] MEDS: MONTELUKAST SODIUM 10 MG TAB PO SCH (10:44)
[2022-05-26] MEDS: cefTRIAXone 1GM/50ML D5W 50 ML IV SCH (10:45)
[2022-05-26] MEDS: dilTIAZem HCL 60 MG TAB PO SCH (10:46)
[2022-05-26] MEDS: ZINC SULFATE 220mg CAP or TAB PO SCH (10:47)
[2022-05-26] MEDS: PANTOPRAZOLE 40 MG/10 ML VIAL INJ IV SCH (10:48)
[2022-05-26] MEDS: ASPirin 81 mg TAB PO SCH (10:48)
[2022-05-26] MEDS: DexAMETHasone SOD PHOS 10MG/1ML VIAL INJ IV SCH (10:56)
[2022-05-26 12:38] VITALS: BP 131/72
[2022-05-26] MEDS: REMDESIVIR 100mg 100 MG in SODIUM CHL 0.9% 230 ML IV SCH (15:12)
[2022-05-26 16:22] VITALS: BP 131/72
[2022-05-26] MEDS: ALBUTEROL SULF HFA 90MCG INH 200DOSE IN SCH ×2 (16:23→22:00)
[2022-05-26] MEDS: BUDESONIDE (INHALATION) 180 MCG IH IN SCH ×2 (16:23→22:00)
[2022-05-26 17:04] VITALS: BP 130/71
[2022-05-26 22:00] VITALS: BP 131/71
[2022-05-27 05:00] VITALS: BP 143/79
[2022-05-27] MEDS: ALBUTEROL SULF HFA 90MCG INH 200DOSE IN SCH ×3 (06:00→18:43)
[2022-05-27] MEDS: DOCUSATE SOD 100 MG CAP PO SCH ×3 (06:44→22:00)
[2022-05-27 07:11] LABS: Basophils # (auto) 0 10 ^3/uL (0-0.2); Eosinophils # (auto) 0 10 ^3/uL (0-0.8); Mean Corpuscular Hgb Conc. 31.9 g/dL (32.0-36.0); Monocytes # (auto) 1.3 10 ^3/uL (0-1.3); Monocytes % (auto) 6.4 % (0.0-12.0)
[2022-05-27 07:17] LABS: Basophils % (auto) 0.1 % (0.0-2.0); Hematocrit 35.2 % (41.0-53.0); Hemoglobin 11.2 g/dL (13.5-17.5); Lymphocytes # (auto) 0.7 10 ^3/uL (0.4-5.4); Lymphocytes % (auto) 3.3 % (10.0-50.0); Mean Corpuscular Hemoglobin 24.6 pg (28.0-32.0); Mean Corpuscular Volume 77.1 fL (80.0-100.0); Neutrophils # (auto) 17.8 10 ^3/uL (1.6-8.6); Neutrophils % (auto) 90.2 % (37.0-80.0); Red Blood Cells 4.57 10^6/uL (4.5-5.90); Red Cell Distribution Width 17.6 % (11.8-14.3); White Blood Cell 19.8 10^3/uL (4.4-10.8)
[2022-05-27 07:37] LABS: Chloride 111 mmol/L (98-107); Potassium 4.1 mmol/L (3.5-5.1); Sodium 144 mmol/L (136-145)
[2022-05-27] MEDS: SODIUM CHLORIDE 0.9% 1,000 ML IV SCH ×2 (07:45→22:14)
[2022-05-27 07:46] LABS: Albumin 2.5 g/dL (3.4-5.0); Anion Gap 8 (5-15); BUN/Creatinine Ratio 36.9; Blood Urea Nitrogen 24 mg/dL (7-18); Calcium 8.7 mg/dL (8.5-10.1); Carbon Dioxide 25 mmol/L (21-32); GFR African American 154 mL/min; GFR Non-African American 127 mL/min; Glucose 114 mg/dL (74-106)
[2022-05-27 09:00] VITALS: BP 126/82
[2022-05-27] MEDS: CHOLECALCIFEROL (VITD3) 2,000 UNIT CAP/TAB PO SCH (09:08)
[2022-05-27] MEDS: cefTRIAXone 1GM/50ML D5W 50 ML IV SCH (09:08)
[2022-05-27] MEDS: GABAPENTIN 300 MG CAP PO SCH ×2 (09:08→22:00)
[2022-05-27] MEDS: dilTIAZem HCL 60 MG TAB PO SCH (09:09)
[2022-05-27] MEDS: ASCORBIC ACID 1,000 MG TAB PO SCH (09:09)
[2022-05-27] MEDS: MONTELUKAST SODIUM 10 MG TAB PO SCH (09:09)
[2022-05-27] MEDS: MEGESTROL ACETATE 20 MG TAB PO SCH (09:09)
[2022-05-27] MEDS: ASPirin 81 mg TAB PO SCH (09:09)
[2022-05-27] MEDS: DexAMETHasone SOD PHOS 10MG/1ML VIAL INJ IV SCH (09:10)
[2022-05-27] MEDS: DULoxetine HCL 30 MG CAP PO SCH (09:10)
[2022-05-27] MEDS: PANTOPRAZOLE 40 MG/10 ML VIAL INJ IV SCH (09:10)
[2022-05-27] MEDS: DOXYCYCLINE 100 MG TAB/CAP PO SCH ×2 (09:10→22:00)
[2022-05-27] MEDS: APIXABAN 5 MG TAB PO SCH ×2 (09:10→22:00)
[2022-05-27] MEDS: ZINC SULFATE 220mg CAP or TAB PO SCH (09:10)
[2022-05-27] MEDS: HYDROcodone-ACET 5/325MG TAB PO PRN (09:16)
[2022-05-27] MEDS: NICOTINE 7MG/24HR TOPICAL PATCH TD SCH (10:00)
[2022-05-27] MEDS: BUDESONIDE (INHALATION) 180 MCG IH IN SCH ×2 (10:00→18:43)
[2022-05-27 10:31] LABS: Alanine Aminotransferase 46 U/L (16-61); Alkaline Phosphatase 104 U/L (45-117); Aspartate Aminotransferase 69 U/L (15-37); Bilirubin, Total 0.6 mg/dL (0.2-1.0)
[2022-05-27 10:51] LABS: CRP High Sensitivity > 0.950 mg/dL (< 0.3)
[2022-05-27 11:38] VITALS: BP 124/79
[2022-05-27] MEDS: REMDESIVIR 100mg 100 MG in SODIUM CHL 0.9% 230 ML IV SCH (16:03)
[2022-05-27] MEDS ORDERED: IBUPROFEN 400 MG TAB PO ONE (16:30)
[2022-05-27 16:31] VITALS: BP 114/69
[2022-05-27] MEDS: MORPHINE SULFATE INJ 2 MG/ml SYRG IV PRN (18:41)
[2022-05-27] MEDS: METOPROLOL TARTRATE 1MG/1ML-5ML VIAL IV PRN (22:13)
[2022-05-27] MEDS ORDERED: HALOPERIDOL LACTATE 5 MG/ML INJ VIAL IM ONE (23:15)
[2022-05-27] MEDS ORDERED: HALOPERIDOL LACTATE 5 MG/ML INJ VIAL IM PRN (23:15)
[2022-05-28] VITALS (8 sets, daily range): BP systolic 129–152; BP diastolic 59–88
[2022-05-28] MEDS ORDERED: METOPROLOL TARTRATE 1MG/1ML-5ML VIAL IV SCH (02:00)
[2022-05-28 05:58] LABS: Basophils # (auto) 0 10 ^3/uL (0-0.2); Basophils % (auto) 0.1 % (0.0-2.0); Eosinophils # (auto) 0 10 ^3/uL (0-0.8); Lymphocytes # (auto) 0.5 10 ^3/uL (0.4-5.4); Mean Corpuscular Hgb Conc. 31.3 g/dL (32.0-36.0); Mean Corpuscular Volume 78.5 fL (80.0-100.0); Monocytes # (auto) 1.6 10 ^3/uL (0-1.3); Neutrophils # (auto) 20.2 10 ^3/uL (1.6-8.6); Neutrophils % (auto) 90.6 % (37.0-80.0); White Blood Cell 22.3 10^3/uL (4.4-10.8)
[2022-05-28 06:04] LABS: Hematocrit 37.6 % (41.0-53.0); Hemoglobin 11.8 g/dL (13.5-17.5); Lymphocytes % (auto) 2.1 % (10.0-50.0); Mean Corpuscular Hemoglobin 24.5 pg (28.0-32.0); Monocytes % (auto) 7.2 % (0.0-12.0); Nucleated Red Blood Cells % 0.1 %; Red Blood Cells 4.79 10^6/uL (4.5-5.90); Red Cell Distribution Width 18.5 % (11.8-14.3)
[2022-05-28 06:13] LABS: Potassium 3.8 mmol/L (3.5-5.1)
[2022-05-28 06:18] LABS: Albumin 2.5 g/dL (3.4-5.0); BUN/Creatinine Ratio 30.1; Bilirubin, Total 0.7 mg/dL (0.2-1.0); Total Protein 6.8 g/dL (6.4-8.2)
[2022-05-28] MEDS: DOCUSATE SOD 100 MG CAP PO SCH ×3 (06:19→21:50)
[2022-05-28] MEDS: BUDESONIDE (INHALATION) 180 MCG IH IN SCH (06:27)
[2022-05-28] MEDS: ALBUTEROL SULF HFA 90MCG INH 200DOSE IN SCH ×2 (06:27→14:15)
[2022-05-28] MEDS: cefTRIAXone 1GM/50ML D5W 50 ML IV SCH (09:28)
[2022-05-28] MEDS: DexAMETHasone SOD PHOS 10MG/1ML VIAL INJ IV SCH (09:29)
[2022-05-28] MEDS: PANTOPRAZOLE 40 MG/10 ML VIAL INJ IV SCH (09:29)
[2022-05-28] MEDS: APIXABAN 5 MG TAB PO SCH ×2 (09:30→09:51)
[2022-05-28] MEDS: dilTIAZem HCL 60 MG TAB PO SCH ×2 (09:30→10:00)
[2022-05-28] MEDS: ZINC SULFATE 220mg CAP or TAB PO SCH (09:48)
[2022-05-28] MEDS: DULoxetine HCL 30 MG CAP PO SCH (09:51)
[2022-05-28] MEDS: DOXYCYCLINE 100 MG TAB/CAP PO SCH (09:52)
[2022-05-28] MEDS: ASCORBIC ACID 1,000 MG TAB PO SCH (09:52)
[2022-05-28] MEDS: NICOTINE 7MG/24HR TOPICAL PATCH TD SCH (09:52)
[2022-05-28] MEDS: MONTELUKAST SODIUM 10 MG TAB PO SCH (09:52)
[2022-05-28] MEDS: CHOLECALCIFEROL (VITD3) 2,000 UNIT CAP/TAB PO SCH (09:52)
[2022-05-28] MEDS: MEGESTROL ACETATE 20 MG TAB PO SCH (09:52)
[2022-05-28] MEDS: GABAPENTIN 300 MG CAP PO SCH ×2 (09:52→21:50)
[2022-05-28] MEDS: SODIUM CHLORIDE 0.9% 1,000 ML IV SCH (10:25)
[2022-05-28] MEDS: METOPROLOL TARTRATE 1MG/1ML-5ML VIAL IV PRN ×2 (13:20→17:51)
[2022-05-28] MEDS: HYDROmorphone HCL 2 MG/ML VL/or syr IV PRN ×2 (13:54→18:55)
[2022-05-28] MEDS ORDERED: ENOXAPARIN SOD 40 MG/0.4 ML SYRINGE SC SCH (14:30)
[2022-05-28] MEDS: D5W 5% 1,000 ML IV SCH (15:12)
[2022-05-28] MEDS ORDERED: dilTIAZem 25 MG/5 ML VIAL IV ONE (15:30)
[2022-05-28] MEDS: HALOPERIDOL LACTATE 5 MG/ML INJ VIAL IM PRN (18:36)
[2022-05-28] MEDS: ENOXAPARIN SOD 40 MG/0.4 ML SYRINGE SC SCH (21:50)
[2022-05-29] MEDS: HYDROmorphone HCL 2 MG/ML VL/or syr IV PRN ×4 (01:00→21:18)
[2022-05-29 02:37] VITALS: BP 137/83
[2022-05-29] MEDS: HALOPERIDOL LACTATE 5 MG/ML INJ VIAL IM PRN (03:43)
[2022-05-29 05:00] VITALS: BP 119/52
[2022-05-29] MEDS: DOCUSATE SOD 100 MG CAP PO SCH ×3 (05:43→22:00)
[2022-05-29] MEDS: D5W 5% 1,000 ML IV SCH ×2 (05:43→18:21)
[2022-05-29] MEDS ORDERED: ALBUTEROL MEDNEB 2.5 mg/3ml NEB ONE ×2 (05:43→21:58)
[2022-05-29] MEDS: ALBUTEROL SULF 2.5 MG/0.5ML(0.5%) NEB SOLN NEB SCH ×3 (06:12→22:06)
[2022-05-29] MEDS: IPRATROPIUM BROM 0.5 MG/2.5ML INH SOL NEB SCH ×3 (06:12→22:07)
[2022-05-29 09:04] VITALS: BP 147/86
[2022-05-29] MEDS: PANTOPRAZOLE 40 MG/10 ML VIAL INJ IV SCH (09:07)
[2022-05-29] MEDS: ENOXAPARIN SOD 40 MG/0.4 ML SYRINGE SC SCH ×3 (09:08→23:58)
[2022-05-29] MEDS: dilTIAZem 25 MG/5 ML VIAL IV SCH (09:08)
[2022-05-29] MEDS: DexAMETHasone SOD PHOS 10MG/1ML VIAL INJ IV SCH (09:08)
[2022-05-29] MEDS: cefTRIAXone 1GM/50ML D5W 50 ML IV SCH (09:12)
[2022-05-29] MEDS: ZINC SULFATE 220mg CAP or TAB PO SCH (09:13)
[2022-05-29] MEDS: DULoxetine HCL 30 MG CAP PO SCH (09:13)
[2022-05-29] MEDS: ASCORBIC ACID 1,000 MG TAB PO SCH (09:15)
[2022-05-29] MEDS: MONTELUKAST SODIUM 10 MG TAB PO SCH (09:15)
[2022-05-29] MEDS: MEGESTROL ACETATE 20 MG TAB PO SCH (09:15)
[2022-05-29] MEDS: CHOLECALCIFEROL (VITD3) 2,000 UNIT CAP/TAB PO SCH (09:15)
[2022-05-29] MEDS: GABAPENTIN 300 MG CAP PO SCH ×2 (09:15→22:00)
[2022-05-29] MEDS: NICOTINE 7MG/24HR TOPICAL PATCH TD SCH (09:16)
[2022-05-29] MEDS ORDERED: DIGOXIN (250MCG/ML) 2 ML AMPULE IV ONE (13:30)
[2022-05-29 17:00] VITALS: BP 167/90
[2022-05-29] MEDS ORDERED: APIX5TAB PO ×2 (17:13)
[2022-05-29] MEDS ORDERED: DOXY-338 PO ×2 (17:13)
[2022-05-29] MEDS ORDERED: DEXA6TAB6 PO ×2 (17:13)
[2022-05-29 19:00] VITALS: BP 155/94
[2022-05-29 21:47] VITALS: BP 142/91
[2022-05-30] MEDS: METOPROLOL TARTRATE 1MG/1ML-5ML VIAL IV PRN (01:43)
[2022-05-30 05:00] VITALS: BP 137/87
[2022-05-30] MEDS: HYDROmorphone HCL 2 MG/ML VL/or syr IV PRN ×2 (05:03→11:19)
[2022-05-30] MEDS ORDERED: ALBUTEROL MEDNEB 2.5 mg/3ml NEB ONE ×2 (05:48→13:34)
[2022-05-30] MEDS: DOCUSATE SOD 100 MG CAP PO SCH ×2 (06:00→14:00)
[2022-05-30] MEDS: D5W 5% 1,000 ML IV SCH (06:47)
[2022-05-30] MEDS: ALBUTEROL SULF 2.5 MG/0.5ML(0.5%) NEB SOLN NEB SCH ×2 (07:01→14:00)
[2022-05-30] MEDS: IPRATROPIUM BROM 0.5 MG/2.5ML INH SOL NEB SCH ×2 (07:01→14:00)
[2022-05-30] MEDS: ASCORBIC ACID 1,000 MG TAB PO SCH (08:26)
[2022-05-30] MEDS: ZINC SULFATE 220mg CAP or TAB PO SCH (08:26)
[2022-05-30] MEDS: MONTELUKAST SODIUM 10 MG TAB PO SCH (08:26)
[2022-05-30] MEDS: MEGESTROL ACETATE 20 MG TAB PO SCH (08:26)
[2022-05-30] MEDS: CHOLECALCIFEROL (VITD3) 2,000 UNIT CAP/TAB PO SCH (08:26)
[2022-05-30] MEDS: GABAPENTIN 300 MG CAP PO SCH (08:26)
[2022-05-30] MEDS: DULoxetine HCL 30 MG CAP PO SCH (08:26)
[2022-05-30] MEDS: NICOTINE 7MG/24HR TOPICAL PATCH TD SCH (08:27)
[2022-05-30] MEDS: cefTRIAXone 1GM/50ML D5W 50 ML IV SCH (08:54)
[2022-05-30] MEDS: DexAMETHasone SOD PHOS 10MG/1ML VIAL INJ IV SCH (08:55)
[2022-05-30] MEDS: PANTOPRAZOLE 40 MG/10 ML VIAL INJ IV SCH (08:56)
[2022-05-30 09:00] VITALS: BP 138/98
[2022-05-30] MEDS: dilTIAZem 25 MG/5 ML VIAL IV SCH (09:17)
[2022-05-30] MEDS: ENOXAPARIN SOD 40 MG/0.4 ML SYRINGE SC SCH (09:18)
[2022-05-30] MEDS ORDERED: DIGOXIN (250MCG/ML) 2 ML AMPULE IV SCH (10:00)
[2022-05-30 11:31] VITALS: BP 137/92
[2022-05-30 11:49] VITALS: BP 136/79
== END 2022-05-30 18:20 | disposition hospice, home (50) | DRG 177 ==
LOC: ER 22:29 → EDBD 22:29 → TELE 05-23 10:43 → TELE-EAST 05-24 17:57
PROVIDERS: ADMIT Registered Nurse; ATTEND Hospitalist
PROC: XW033E5 Introduction of Remdesivir Anti-infective into Peripheral Vein, Percutaneous Approach, New Technology Group 5 (ICD-10-PCS; principal; 2022-05-23)
PROC: 5A09457 Assistance with Respiratory Ventilation, 24-96 Consecutive Hours, Continuous Positive Airway Pressure (ICD-10-PCS; 2022-05-28)
DX: U07.1 COVID-19 (principal); G93.41 Metabolic encephalopathy; J12.82 Pneumonia due to coronavirus disease 2019; J96.21 Acute and chronic respiratory failure with hypoxia; E46 Unspecified protein-calorie malnutrition; J44.1 Chronic obstructive pulmonary disease with (acute) exacerbation; J44.0 Chronic obstructive pulmonary disease with (acute) lower respiratory infection; D64.9 Anemia, unspecified; F41.9 Anxiety disorder, unspecified; I11.0 Hypertensive heart disease with heart failure; I50.9 Heart failure, unspecified; F32.A Depression, unspecified; G62.9 Polyneuropathy, unspecified; G89.29 Other chronic pain; I73.9 Peripheral vascular disease, unspecified; I87.2 Venous insufficiency (chronic) (peripheral); M19.90 Unspecified osteoarthritis, unspecified site; E78.5 Hyperlipidemia, unspecified; F17.210 Nicotine dependence, cigarettes, uncomplicated; I48.91 Unspecified atrial fibrillation; I25.10 Atherosclerotic heart disease of native coronary artery without angina pectoris; Z79.01 Long term (current) use of anticoagulants; Z80.0 Family history of malignant neoplasm of digestive organs; Z80.1 Family history of malignant neoplasm of trachea, bronchus and lung; Z82.49 Family history of ischemic heart disease and other diseases of the circulatory system; Z86.73 Personal history of transient ischemic attack (TIA), and cerebral infarction without residual deficits; Z99.81 Dependence on supplemental oxygen; Z68.20 Body mass index [BMI] 20.0-20.9, adult
CPT/HCPCS: 36415; 36600; 71045; 71275; 74018; 80053; 81001; 82306; 82728; 82805; 83036; 83605; 83615; 83735; 83880; 84443; 84484; 85025; 85379; 85610; 85730; 86141; 87040; 87077; 87081; 87086; 87186; 87426; 92610; 93005; 93970; 94640; 94660; 96365; 96375; 99291; C9113; G0378; J0696; J1100; J7060